=== PATIENT | female | born 1960 | race African-American/Black ===

== ENCOUNTER 2016-07-26 02:12 | Inpatient (IN) | payer BC ==
[~2016-07-26] VITALS: Ht 157.5 cm; Wt 82.3 kg
[2016-07-26] VITALS (39 sets, daily range): BP systolic 111–157; BP diastolic 81–131
[2016-07-26] MEDS: AMIODARONE IV SOLUTION 200 ML IV SCH ×2 (03:05→09:17)
[2016-07-26] MEDS ORDERED: HEParin DRIP 25000 UNIT/500ML 500 ML IV ONE (03:16)
[2016-07-26 03:25] LABS: BASOPHILS % (AUTO) 0 % (0-10); EOSINOPHILS # (AUTO) 0.1 10^3/uL (0.0-0.3); EOSINOPHILS % (AUTO) 2 % (0-10); LYMPHOCYTES # (AUTO) 3.4 X 10^3 (1.0-4.0); LYMPHOCYTES % (AUTO) 52 % (12-44); MEAN CORPUSCULAR HEMOGLOBIN 28 PG (25-34); MEAN CORPUSCULAR HGB CONC 33 G/DL (32-36); MEAN CORPUSCULAR VOLUME 84 FL (80-99); MEAN PLATELET VOLUME 9.9 FL (7.4-10.4); MONOCYTES # (AUTO) 0.4 X 10^3 (0.0-1.0); MONOCYTES % (AUTO) 6 % (0-12); NEUTROPHILS # (AUTO) 2.6 X 10^3 (1.8-7.8); NEUTROPHILS % (AUTO) 40 % (42-75); PLATELET COUNT 233 10^3/uL (130-400); RED BLOOD COUNT 5.12 10^6/uL (4.35-5.85); RED CELL DISTRIBUTION WIDTH 15.3 % (10.0-14.5); WHITE BLOOD COUNT 6.4 10^3/uL (4.3-11.0)
[2016-07-26 03:36] LABS: PROTHROMBIN TIME PATIENT 12.9 SEC (12.2-14.7)
[2016-07-26 03:52] LABS: ANION GAP 12 MMOL/L (5-14); BLOOD UREA NITROGEN 7 MG/DL (7-18); BUN/CREATININE RATIO 11; CALCIUM 8.7 MG/DL (8.5-10.1); CARBON DIOXIDE 16 MMOL/L (21-32); CHLORIDE 113 MMOL/L (98-107); CREATININE SERUM 0.64 MG/DL (0.60-1.30); GFR ESTIMATED > 60; GLUCOSE 92 MG/DL (70-105); PHOSPHORUS 3.6 MG/DL (2.3-4.7); POTASSIUM 3.5 MMOL/L (3.6-5.0); SODIUM 141 MMOL/L (135-145)
[2016-07-26 04:04] LABS: ALANINE AMINOTRANSFERASE 18 U/L (0-55); ANION GAP 13 MMOL/L (5-14); ASPARTATE AMINO TRANSFERASE 24 U/L (5-34); BILIRUBIN,TOTAL 0.6 MG/DL (0.1-1.0); BLOOD UREA NITROGEN 7 MG/DL (7-18); BUN/CREATININE RATIO 11; CALCIUM 8.7 MG/DL (8.5-10.1); CARBON DIOXIDE 15 MMOL/L (21-32); CHLORIDE 113 MMOL/L (98-107); CREATININE SERUM 0.64 MG/DL (0.60-1.30); GFR ESTIMATED > 60; GLUCOSE 94 MG/DL (70-105); POTASSIUM 3.5 MMOL/L (3.6-5.0); SODIUM 141 MMOL/L (135-145); TOTAL PROTEIN 6.9 G/DL (6.4-8.2)
[2016-07-26 04:24] LABS: THYROID STIMULATING HORMONE 0.56 UIU/ML (0.35-4.94)
[2016-07-26] MEDS ORDERED: HEParin 1000 UNIT/ML BOLUS (FULL THERAPY) IV PRN (04:45)
[2016-07-26] MEDS ORDERED: HEParin DRIP 25000 UNIT/500ML (FULL THERAPY) IV SCH (04:45)
[2016-07-26] MEDS: MAGNESIUM 1 GM/100 ML IVPB 100 ML IV SCH (05:07)
[2016-07-26] MEDS: POTASSIUM CL 10MEQ/50ML IVPB 50 ML IV SCH ×3 (05:07→08:09)
[2016-07-26] MEDS: KCL 20 MEQ TAB (K-DUR) PO SCH (05:09)
[2016-07-26] MEDS ORDERED: KCL 20 MEQ TAB (K-DUR) PO ONE (05:15)
[2016-07-26] MEDS ORDERED: NS IV 1000 ML 1,000 ML IV ONE (07:44)
[2016-07-26] MEDS ORDERED: LIDOCAINE TOPICAL 4% 50 ML BTL MM PRN (07:45)
[2016-07-26] MEDS ORDERED: meTOprolol 5 MG/5 ML (LOPRESSOR) VIAL IV NR (07:52)
--- NOTE | 2016-07-26 07:53 | Cardiology History & Physical ---
HPI-Cardiology Cardiology Consultation Date of Consultation 07/26/16 Date of Admission Indication: Vasquez peoples HPI 55 years old lady with history of hypertension, had a stress test last week and reported that it was normal. She had episode of palpitation after the stress test resolved spontaneously. Yesterday started having palpitation, went to the emergency room and noted to be in atrial fibrillation with rapid ventricular response. It appear that she had intermittent left bundle branch block. Which could be aberrant conduction. Patient had episode of wide-complex tachycardia resembling ventricular tachycardia, she was started on amiodarone drip and heparin drip. Transferred here for evaluation upon my evaluation she was feeling well. Denied any chest pain, still feeling some palpitation, denied any shortness of breath, syncope or near syncopal episodes. PMH-Cardiology Immunizations Up To Date Date of Influenza Vaccine: May 12, 2016 Seasonal Allergies Seasonal Allergies: Yes Cardiovascular Cardiac Disorders: High Cholesterol, Hypertension Reproductive System Sexually Transmitted Disease: No HIV/AIDS: No Blood Transfusions Adverse Reaction to a Blood Tr: No Other PMHx Other PMHx: hypertension Social History Patient Social History Alcohol Use: Rarely Uses Recreational Drug Use: No Smoking: Never smoker Recent Foreign Travel: No Contact w/other who traveled: No Recent Infectious Disease Expo: No Family Hx Family History: Arthritis 19 MOTHER Asthma 19 MOTHER Cataracts 19 MOTHER Colon cancer 19 MOTHER Hypertension 19 FATHER 19 MOTHER Neoplasm 19 MOTHER Thyroid disease 19 MOTHER Visual disorder 19 FATHER 19 MOTHER ROS-Cardiology Review of Systems General: No Chills, No Night Sweats, No Fatigue, No Malaise, No Appetite HEENT: No Head Aches, No Visual Changes, No Eye Pain, No Ear Pain, No Dysphasia , No Sinus Congestion, No Post Nasal Drip, No Sore Throat Pulmonary: No Dyspnea, No Cough, No Pleuritic Chest Pain Cardiovascular: : PalpitationsNo: Chest Pain, Edema, Lt Headedness, Orthopnea, Paroxysmal Noc. Dyspnea Gastrointestinal: No: Abdominal Pain, Constipation, Diarrhea, Hematochezia, Melena, Nausea, Vomiting Genitourinary: No Dysuria, No Frequency, No Incontinence, No Hematuria, No Retention Musculoskeletal: No: arm pain, back pain, foot pain, hand pain, leg pain, neck pain, shoulder pain Neurological: No: Change in speech, Confusion, Incoordination, Numbness, Seizures, Weakness Home Medications & Allergies Allergies: Coded Allergies: No Known Drug Allergies (Unverified , 07/26/16) Home Medication List Reviewed: Yes Exam-Cardiology Vital Signs Vital Signs Date Time Temp Pulse Resp B/P Pulse Ox O2 Delivery O2 Flow Rate FiO2 07/26/16 07:00 91 21 129/100 96 Nasal Cannula 2.00 07/26/16 04:00 97.6 Exam General Appearance: Alert, Oriented X3, Cooperative, No Acute Distress HEENT: Atraumatic, PERRLA Respiratory: Clear to Auscultation, Normal Air Movement Cardiovascular: Normal S1, Normal S2, No Murmurs, Other (irregular rhythm) Abdominal: Normal Bowel Sounds, Soft, No Tenderness, No Hepatosplenomegaly, No Masses Extremities: No Clubbing, No Cyanosis, No Edema, Normal Pulses, No Tenderness/ Swelling Skin: No Rashes, No Breakdown, No Significant Lesion Neuro: Normal Gait, Normal Speech, Strength at 5/5 X4 Ext, Normal Tone, Sensation Intact Psych/Mental Status: Mental Status NL, Mood NL Results Labs Labs Laboratory Tests 07/26/16 03:00: Activated Partial Thromboplast Time 59H, Alanine Aminotransferase (ALT/SGPT) 18 , Albumin 4.0, Alkaline Phosphatase 111, Anion Gap 12, Aspartate Amino Transf ( AST/SGOT) 24, B-Type Natriuretic Peptide 88.0, BUN/Creatinine Ratio 11, Basophils # (Auto) 0.0, Basophils (%) (Auto) 0, Blood Urea Nitrogen 7, Calcium Level 8.7, Carbon Dioxide Level 16L, Chloride Level 113H, Creatinine 0.64, Eosinophils # (Auto) 0.1, Eosinophils (%) (Auto) 2, Estimat Glomerular Filtration Rate > 60, Glucose Level 92, Hematocrit 43, Hemoglobin 14.2, INR Comment 1.0, Lymphocytes # (Auto) 3.4, Lymphocytes (%) (Auto) 52H, Magnesium Level 2.0, Mean Corpuscular Hemoglobin 28, Mean Corpuscular Hemoglobin Concent 33, Mean Corpuscular Volume 84, Mean Platelet Volume 9.9, Monocytes # (Auto) 0.4 , Monocytes (%) (Auto) 6, Neutrophils # (Auto) 2.6, Neutrophils (%) (Auto) 40L, Phosphorus Level 3.6, Platelet Count 233, Potassium Level 3.5L, Prothrombin Time 12.9, Red Blood Count 5.12, Red Cell Distribution Width 15.3H, Sodium Level 141, Thyroid Stimulating Hormone (TSH) 0.56, Total Bilirubin 0.6, Total Protein 6.9, White Blood Count 6.4 07/26/16 05:25: Troponin I < 0.30 A/P-Cardiology Admission Diagnosis atrial fibrillation Ventricular tachycardia Hypertension Palpitation Assessment/Plan Atrial fibrillation with variable response, started on amiodarone, planning to evaluate JONY and cardioversion if she does not convert spontaneously. Wide complex tachycardia, ventricular tachycardia versus aberrant conduction, mild hypokalemia, I will replace, continue to monitor electrolyte, maintained on amiodarone, planning to switch to oral. Palpitation, probably secondary to above Hypertension, has been on metoprolol and lisinopril as an outpatient which will be restarted. History of ascending aortic dilation dictation discomfort in June 2016. Followed by primary cupola patcher Questionable history of cardiomyopathy, planning to evaluate echocardiogram. Clinical Quality Measures DVT/VTE Risk/Contraindication: Risk Factor Score Per Nursin RFS Level Per Nursing on Admit: 1=Low/No VTE PPX RUFINO DIAZ MD Jul 26, 2016 07:53
[2016-07-26] MEDS ORDERED: HEParin DRIP 25000 UNIT/500ML 500 ML IV SCH (07:54)
--- NOTE | 2016-07-26 07:54 | Cardiac Procedure Note-CS/ASA ---
Pre-Procedure Note Pre-Op Procedure Note H&P Reviewed The H&P was reviewed, patient examined and no changes noted. Date H&P Reviewed: Jul 26, 2016 Time H&P Reviewed: 07:53 Conscious Sedation Pre-Proced Time Reviewed: 07:53 ASA Class: 3 Airway Mallampati Classification: ([place] appropriate class) I. II. III, IV Lungs Heart ASA score ASA 1: a normal healthy patient ASA 2: a patient with a mild systemic disease (mid diabetes, controlled hypertension, obesity x ASA 3: a patient with a severe systemic disease that limits activity (angina , COPD, prior Myocardial infarction) ASA 4: a patient with an incapacitating disease that is a constant threat to life (CHF, renal failure) ASA 5: a moribund patient not expected to survive 24 hrs. (ruptured aneurysm) ASA 6: a declared brain patient whose organs are being harvested. For emergent operations, add the letter E after the classification Grade 3 Sedation Plan: Analgesia, Amnesia, Plan communicated to team members, Discussed options with patient/fam, Discussed risks with patient/fam Note The patient is an appropriate candidate to undergo the planned procedure, sedation, and anesthesia. The patient immediately re-assessed prior to indication. RUFINO DIAZ MD Jul 26, 2016 07:54
[2016-07-26] MEDS ORDERED: LISI10TA2 PO (08:00)
[2016-07-26] MEDS ORDERED: HEParin 1000 UNIT/ML (10ML VIAL) FOR BOLUS IV PRN (08:00)
[2016-07-26] MEDS ORDERED: METO50TA2 PO ×2 (08:00→08:03)
[2016-07-26] MEDS ORDERED: CATHETER FLUSH 10 ML SYR IV PRN (08:00)
[2016-07-26] MEDS ORDERED: ASPI-983 PO (08:03)
[2016-07-26] MEDS ORDERED: POTASSIUM (08:03)
[2016-07-26] MEDS ORDERED: CETI10TA20 PO (08:03)
[2016-07-26 08:10] LABS: MEAN PLATELET VOLUME 11.3 FL (7.4-10.4); RED BLOOD COUNT 4.79 10^6/uL (4.35-5.85); RED CELL DISTRIBUTION WIDTH 15.4 % (10.0-14.5); WHITE BLOOD COUNT 5.9 10^3/uL (4.3-11.0)
[2016-07-26] MEDS ORDERED: POTA10TA10 PO (09:12)
[2016-07-26 10:18] LABS: INR 1.1 (0.8-1.4); PROTHROMBIN TIME PATIENT 13.6 SEC (12.2-14.7)
[2016-07-26 10:25] LABS: PARTIAL THROMBOPLASTIN TIME > 200 SEC (24-35)
[2016-07-26] MEDS ORDERED: meTOprolol 5 MG/5 ML (LOPRESSOR) VIAL IV SCH (12:00)
[2016-07-26] MEDS ORDERED: proPOfol 200 MG/20 ML (DIPRIVAN) VIAL IV ONE (12:41)
[2016-07-26] MEDS ORDERED: MIDAZOLAM 5 MG/5 ML (VERSED) VIAL ONE ×2 (12:41→16:18)
[2016-07-26] MEDS ORDERED: LIDOCAINE 2% VISCOUS 15 ML UDC ONE (12:42)
--- NOTE | 2016-07-26 14:42 | Progress Note-Standard ---
Standard Progress Note Progress Notes/Assess & Plan Progress/Assessment & Plan Anesthesia Note Called to ICU for JONY/Cardioversion. Versed 3 mg IV given in preparation for procedure. After given, pt returned to SR. 12 lead EKG to confirm. Will be available if needed. ROHAN PLUMMER DO Jul 26, 2016 14:42
[2016-07-26] MEDS ORDERED: MIDAZOLAM 5 MG/5 ML (VERSED) VIAL IVP ONE (14:45)
[2016-07-26] MEDS ORDERED: LIDOCAINE 1% INJ 20 ML (XYLOCAINE) VIAL ONE (15:08)
[2016-07-26] MEDS ORDERED: HEParin (CATH LAB) 2,000 ML IV ONE (15:08)
[2016-07-26] MEDS ORDERED: NS IV 1000 ML 1,000 ML ONE (15:08)
[2016-07-26] MEDS ORDERED: fentaNYL INJECTION 100 MCG/2 ML AMP ONE (16:18)
[2016-07-26] MEDS ORDERED: PATIENT MAY USE OWN MEDS, ALL PO SCH (16:45)
[2016-07-26] MEDS: NS IV 1000 ML 1,000 ML IV SCH ×2 (16:45→21:58)
[2016-07-26] MEDS ORDERED: ONDANSETRON 4 MG/2 ML (SDV) Z0FRAN ONE (17:03)
[2016-07-26] MEDS ORDERED: ASPIRIN E.C. 81 MG (ECOTRIN) TAB PO SCH (21:00)
[2016-07-26] MEDS ORDERED: meTOprolol TARTRATE 50 MG (LOPRESSOR) TAB PO SCH (21:00)
[2016-07-26] MEDS ORDERED: FUROSEMIDE 40 MG/4 ML INJ (LASIX) IVP NR (21:00)
[2016-07-26] MEDS: AMIODARONE 200 MG (CORDARONE) TAB PO SCH (21:04)
[2016-07-26] MEDS: KCL 10 MEQ TAB (MICRO K) PO SCH (21:05)
[2016-07-26] MEDS: APIXABAN 5 MG (ELIQUIS) TABLET PO SCH (21:05)
[2016-07-27] VITALS (11 sets, daily range): BP systolic 131–153; BP diastolic 76–99
[2016-07-27] MEDS: NS IV 1000 ML 1,000 ML IV SCH (02:45)
[2016-07-27 04:30] LABS: BASOPHILS % (AUTO) 0 % (0-10); EOSINOPHILS # (AUTO) 0.1 10^3/uL (0.0-0.3); EOSINOPHILS % (AUTO) 1 % (0-10); LYMPHOCYTES # (AUTO) 2.3 X 10^3 (1.0-4.0); LYMPHOCYTES % (AUTO) 36 % (12-44); MEAN CORPUSCULAR HEMOGLOBIN 27 PG (25-34); MEAN CORPUSCULAR HGB CONC 33 G/DL (32-36); MEAN CORPUSCULAR VOLUME 84 FL (80-99); MEAN PLATELET VOLUME 10.4 FL (7.4-10.4); MONOCYTES # (AUTO) 0.7 X 10^3 (0.0-1.0); MONOCYTES % (AUTO) 12 % (0-12); NEUTROPHILS # (AUTO) 3.2 X 10^3 (1.8-7.8); NEUTROPHILS % (AUTO) 51 % (42-75); PLATELET COUNT 226 10^3/uL (130-400); RED BLOOD COUNT 4.79 10^6/uL (4.35-5.85); RED CELL DISTRIBUTION WIDTH 15.4 % (10.0-14.5); WHITE BLOOD COUNT 6.3 10^3/uL (4.3-11.0)
[2016-07-27 04:49] LABS: ANION GAP 9 MMOL/L (5-14); BLOOD UREA NITROGEN 5 MG/DL (7-18); BUN/CREATININE RATIO 8; CALCIUM 8.3 MG/DL (8.5-10.1); CARBON DIOXIDE 22 MMOL/L (21-32); CHLORIDE 110 MMOL/L (98-107); CREATININE SERUM 0.65 MG/DL (0.60-1.30); GFR ESTIMATED > 60; GLUCOSE 100 MG/DL (70-105); MAGNESIUM 1.9 MG/DL (1.8-2.4); PHOSPHORUS 3.6 MG/DL (2.3-4.7); POTASSIUM 3.6 MMOL/L (3.6-5.0); SODIUM 141 MMOL/L (135-145)
[2016-07-27] MEDS ORDERED: KCL 20 MEQ TAB (K-DUR) PO ONE (06:00)
[2016-07-27] MEDS: POTASSIUM CL 10MEQ/50ML IVPB 50 ML IV SCH (06:00)
[2016-07-27] MEDS: MAGNESIUM 1 GM/100 ML IVPB 100 ML IV SCH (06:00)
[2016-07-27] MEDS: KCL 20 MEQ TAB (K-DUR) PO SCH (06:00)
[2016-07-27] MEDS: KCL 10 MEQ TAB (MICRO K) PO SCH ×2 (07:00→08:48)
--- NOTE | 2016-07-27 08:17 | Cardiology Discharge Summary ---
Diagnosis/Chief Complaint Date of Admission Jul 26, 2016 at 02:12 Date of Discharge July 27, 2016 Admission Diagnosis Atrial fibrillation Ventricular tachycardia Hypertension Palpitation Discharge Diagnosis Atrial fibrillation with rapid ventricular response Ventricular tachycardia Congestive heart failure, chronic compensated left ventricular size dysfunction, nonischemic cardiomyopathy, ejection fraction 20 percent Palpitation Hypertension Chief Complaint/HPI Chief Complaint/HPI 55 years old lady with history of hypertension, had a stress test last week and reported that it was normal. She had episode of palpitation after the stress test resolved spontaneously. Started having palpitation, went to the emergency room and noted to be in atrial fibrillation with rapid ventricular response. It appear that she had intermittent left bundle branch block. Which could be aberrant conduction. Patient had episode of wide-complex tachycardia resembling ventricular tachycardia, she was started on amiodarone drip and heparin drip. Transferred here from [place] for evaluation, upon my evaluation she was feeling well. Denied any chest pain, still feeling some palpitation, denied any shortness of breath, syncope or near syncopal episodes. During the hospital stay patient converted to sinus rhythm on amiodarone, echocardiogram was done which showed severe cardiomyopathy with ejection fraction 20 percent, I decided to proceed with cardiac catheterization to evaluate for ischemic cardiomyopathy which showed mild disease nonobstructive disease. Patient has nonischemic cardiomyopathy. I will continue on amiodarone for now, initiate her on life vest and arrange for follow-up with Dr. Haley Discharge Summary Hospital Course Hospital Course Atrial fibrillation with variable response, converted to sinus rhythm on amiodarone. Continue on amiodarone. [id number] score is 3, yearly risk of stroke without oral anticoagulation is 3.2 percent. I started her on Eliquis 5 mg twice daily. Wide complex tachycardia, ventricular tachycardia versus aberrant conduction, patient is seen and followed by Dr. Haley, started on amiodarone, I am planning to place a LifeVest and arrange for follow-up with Dr. Haley Congestive heart failure, severe left ventricular systolic dysfunction, nonischemic cardiomyopathy, chronic compensated, ejection fraction 20 percent, continue on beta blockers and Juan inhibitors. Continue on amiodarone and place LifeVest, planning for possible ICD implant which will be done as an outpatient. Palpitation, probably secondary to above, Reporting improvement Hypertension, continue on beta blockers and Juan inhibitors and monitor tolerance History of ascending aortic dilation dictation discomfort in June 2016. Followed by primary registered nurse practitioner Coronary artery disease, cardiac catheterization showed mild disease nonobstructive disease. Prominent aortic arch. Labs Laboratory Tests 07/26/16 03:00: Activated Partial Thromboplast Time 59H, Carbon Dioxide Level 16L, Chloride Level 113H, Lymphocytes (%) (Auto) 52H, Neutrophils (%) (Auto) 40L, Potassium Level 3.5L, Red Cell Distribution Width 15.3H 07/26/16 05:25: Red Cell Distribution Width 15.4H, Mean Platelet Volume 11.3H 07/26/16 10:02: Activated Partial Thromboplast Time > 200*H 07/27/16 03:50: Chloride Level 110H, Red Cell Distribution Width 15.4H, Blood Urea Nitrogen 5L, Calcium Level 8.3L Procedures None. Discharge Physical Examination Allergies: Coded Allergies: No Known Drug Allergies (Unverified , 07/26/16) Vitals & I&Os Vital Signs Date Time Temp Pulse Resp B/P Pulse Ox O2 Delivery O2 Flow Rate FiO2 07/27/16 07:00 57 07/27/16 06:00 7 153/94 96 Room Air 07/27/16 04:00 97.1 07/26/16 16:45 2.00 General Appearance: Alert, Oriented X3, Cooperative, No Acute Distress HEENT: Atraumatic, PERRLA Respiratory: Clear to Auscultation, Normal Air Movement Cardiovascular: Regular Rate, Normal S1, Normal S2, No Murmurs Abdominal: Normal Bowel Sounds, Soft, No Tenderness, No Hepatosplenomegaly, No Masses Extremities: No Clubbing, No Cyanosis, No Edema, Normal Pulses, No Tenderness/ Swelling Skin: No Rashes, No Breakdown, No Significant Lesion Neuro: Normal Gait, Normal Speech, Strength at 5/5 X4 Ext, Normal Tone, Sensation Intact, Cranial Nerves 3-12 NL, Reflexes 2+ Psych/Mental Status: Mental Status NL, Mood NL Discharge Home Medications Reviewed and agree with Discharge Medication list on patient's Discharge Instruction sheet Instructions to Patient/Family Please see electonic discharge instructions given to patient. Clinical Quality Measures DVT/VTE Risk/Contraindication: VTE Present on Admission: Yes Risk Factor Score Per Nursin RFS Level Per Nursing on Admit: 2=Moderate RUFINO DIAZ MD Jul 27, 2016 08:17
[2016-07-27] MEDS ORDERED: FURO-125 PO (08:20)
[2016-07-27] MEDS ORDERED: POTA10TA6 PO (08:20)
[2016-07-27] MEDS ORDERED: AMIO200T2 PO (08:20)
[2016-07-27] MEDS ORDERED: APIX5TAB PO (08:20)
--- NOTE | 2016-07-27 08:21 | Discharge Inst-Post CATH ---
Discharge Inst-CATH Post Cardiac Cath D/C Inst Follow Up/Plan Appointment with Dr. Haley in one to 2 weeks CARDIAC CATH DISCHARGE INSTRUCTIONS *Hold Metformin for 48 hours post heart cath. ACTIVITY * Go Home directly and rest. * Limit activity of the leg (or wrist if it was used) for 7 days including aerobics, swimming, jogging, bicycling, etc. * Restrict stair-climbing for 7 days if possible, if not, climb up with your non -cath leg, then bring together on the same step. * Avoid lifting, pushing, pulling or excessive movement of the affected extremity for 7 days. * Customary sexual activity may be resumed after 2 days-use caution not to use a position that strains or causes pain to the affected extremity. * No driving for 24 hours. * NO SMOKING. * Avoid straining for bowel movements for 7 days. * Gentle walking on level ground is allowed. * Returning to work will depend on the type of procedure and the results. Your doctor will discuss this with you. CALL YOUR DOCTOR FOR ANY OF THE FOLLOWING: *If bleeding from the puncture site occurs- Apply gentle pressure to site with clean cloth and call your doctor or EMS. * If a knot or lump forms under the skin, increases in size, or causes pain. * If bruising appears to be worsening or moving further down your leg instead of disappearing. * Temperature above 101 F. CARE OF YOUR GROIN INCISION; * Bruising or purple discoloration of the skin near the puncture site is common. * You may shower only, no bathtub bathing for 5 days. Be careful to avoid slipping as your leg may feel stiff. * If a closure device was used on your femoral artery, please see the attached guide regarding care of the device and your leg. * REMOVE the dressing from your groin the next day after your procedure in the shower. CARE OF YOUR WRIST INCISION; * Bruising or purple discoloration of the skin near the puncture site is common. * You may shower. * DO NOT submerge wrist. * Remove dressing in 24 hours. RUFINO DIAZ MD Jul 27, 2016 08:21
[2016-07-27] MEDS: APIXABAN 5 MG (ELIQUIS) TABLET PO SCH (08:48)
[2016-07-27] MEDS: AMIODARONE 200 MG (CORDARONE) TAB PO SCH (08:48)
[2016-07-27] MEDS ORDERED: lisINopril 10 MG (PRINIVIL) TAB PO SCH (09:00)
[2016-07-27] MEDS ORDERED: ASPIRIN E.C. 81 MG (ECOTRIN) TAB PO SCH (09:00)
[2016-07-27] MEDS ORDERED: meTOprolol TARTRATE 50 MG (LOPRESSOR) TAB PO SCH (09:00)
--- NOTE | 2016-07-27 09:12 | Diagnostic Imaging Report ---
INDICATION: Shortness of breath. FINDINGS: There is cardiomegaly. The lungs are clear. There is no pleural effusion or pneumothorax. IMPRESSION: No acute cardiopulmonary abnormality. Cardiomegaly. Dictated by: Dictated on workstation # [id number]
--- NOTE | 2016-07-28 00:02 | CARDIAC CATHETERIZATION ---
PROCEDURE PHYSICIAN: RUFINO DIAZ DATE OF PROCEDURE: 07/26/2016 CARDIAC CATHETERIZATION REPORT: REFERRING PHYSICIAN: Dr. Saadia Arechiga Ms. Tam is a 55-year-old lady who was transferred from [facility] due to atrial fibrillation and multiple episodes of sustained ventricular tachycardia. She has been having palpitations. I did a transthoracic echocardiogram, which showed severe cardiomyopathy with ejection fraction 20%, decided to proceed with coronary angiogram. PROCEDURE NOTE: After explaining the procedure to the patient, all pros and cons were explained. All questions were answered. The patient signed a consent, then she was placed on the cardiac catheterization laboratory. The right groin was prepped in a sterile fashion. Local anesthesia applied to the right groin. 6-St Helenian sheath was placed in the right femoral artery. Combination of right and left Roberto Carlos catheter were used to access the right and left coronary system. Multiple views were obtained. Pigtail catheter was advanced to the left ventricular cavity. Pressure was measured. No left ventriculogram was done. Pullback LV to aorta was done. The aortic arch angiogram was done. At the end of the procedure, sheath was removed. Mynx device deployed. Hemostasis achieved. FINDINGS: HEMODYNAMICS: LV pressure is 141/22, end-diastolic pressure of 22. Aortic pressure 148/88, mean of 106. ANATOMY: 1. Left main coronary artery is bifurcating to left anterior descending and left circumflex artery with no obstructive disease. 2. Left anterior descending artery is moderate in size with no significant obstructive disease. 3. Left circumflex artery is moderate in size with no obstructive disease. 4. Right coronary artery is moderate in size with no obstructive disease. 5. No left ventriculogram was done. Elevated left ventricular end diastolic pressure. 6. Aortic arch angiogram appeared to be done in the left anterior oblique position. The aortic arch is prominent. The left carotid artery is originating from the right innominate artery. The left subclavian artery is normal. Otherwise, no abnormality. IN CONCLUSION: 1. Mild coronary artery disease, nonobstructive disease. 2. Severe cardiomyopathy, nonischemic in nature. Elevated left ventricular end-diastolic pressure. 3. 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 DISCUSSION AND RECOMMENDATION: I will continue maximizing medical therapy. Her cardiomyopathy is nonischemic. Job ID: [id number] Dictated Date: 07/26/2016 16:52:59 Lens Inserter Date: 07/27/2016 23:53:24 / erica
--- NOTE | 2016-07-28 23:53 | ECHOCARDIOGRAPHY REPORT ---
PROCEDURE PHYSICIAN: RUFINO DIAZ DATE OF PROCEDURE: 07/26/2016 TWO DIMENSIONAL ECHOCARDIOGRAM REPORT PRIMARY PHYSICIAN: OTHER PHYSICIAN: REFERRING PHYSICIAN: Dr. Saadia Arechiga and Dr. Blaine Haley ORDERING PHYSICIAN: INDICATION FOR THE PROCEDURE: Atrial fibrillation. MEASUREMENTS DERIVED VALUES LV DIAMETER (LAX) NORMALS NORMALS Diastolic 4.4 (3.6-5.2) Eject. Fract. 20% (60%+/-6%) Systolic (2.3-3.9) Diastolic Vol. % Shortening (0.22-0.42) Systolic Vol. Aortic Root IVS THICKNESS Diastolic 1.1 (0.6-1.1) LVPW THICKNESS Diastolic 1.1 (0.6-1.1) LA DIAMETER Systolic 3.2 (2.1-3.7) FINDINGS: 1. Technical quality is good. 2. The left ventricle is dilated with diffuse left ventricular hypokinesia. Systolic function is reduced. Estimated ejection fraction 20%. 3. The left atrium is dilated. No clot or thrombus were seen within the left atrium. 4. The right atrium and right ventricle are normal in size. No clot or thrombus were seen within the right side. 5. Mitral valve is normal in morphology with mild mitral regurgitation noted by color Doppler flow. No mitral valve prolapse. No mitral valve stenosis. 6. Aortic valve is trileaflet with normal opening and closing pattern. No significant aortic stenosis or regurgitation was seen. 7. Tricuspid valve is normal in morphology with mild tricuspid regurgitation noted by color Doppler flow. Doppler across tricuspid valve estimated pulmonary artery pressure of 15+ right atrial pressure. 8. Pulmonic valve is functioning normally. 9. No pericardial effusion. IN CONCLUSION: 1. Normal left ventricular size and systolic function. Estimated ejection fraction is 60%. 2. Mild mitral and tricuspid regurgitation. 3. Estimated pulmonary artery pressure of 20 to 25 mmHg. Job ID: [id number] Dictated Date: 07/28/2016 10:30:24 Bench Examiner Date: 07/28/2016 23:48:56 / erica
== END 2016-07-27 14:20 | disposition home or self-care (01) | DRG 287 ==
LOC: INTOOBSV 02:12 → ICU 02:12 → OBSVTOIN 02:12
PROVIDERS: ADMIT Internal Medicine Cardiovascular Disease; ATTEND Internal Medicine Cardiovascular Disease
PROC: B2111ZZ Fluoroscopy of Multiple Coronary Arteries using Low Osmolar Contrast (ICD-10-PCS; principal; 2016-07-26)
PROC: B3101ZZ Fluoroscopy of Thoracic Aorta using Low Osmolar Contrast (ICD-10-PCS; 2016-07-26)
DX: I48.91 Unspecified atrial fibrillation (principal); I50.22 Chronic systolic (congestive) heart failure; I47.2 Ventricular tachycardia; I10 Essential (primary) hypertension; E78.00 Pure hypercholesterolemia, unspecified; E87.6 Hypokalemia; I25.10 Atherosclerotic heart disease of native coronary artery without angina pectoris; I42.9 Cardiomyopathy, unspecified; I08.1 Rheumatic disorders of both mitral and tricuspid valves
CPT/HCPCS: 36221; 36415; 71010; 80048; 80053; 83735; 83880; 84100; 84443; 84484; 85025; 85027; 85610; 85730; 87081; 93005; 93306; 93458

== ENCOUNTER → 2016-10-31 | Outpatient (CLI) | payer BC ==
[~2016-10-31] MED LIST: AMIO200T2 PO; APIX5TAB PO; ASPI-983 PO; CATHETER FLUSH 10 ML SYR IV PRN; CETI10TA20 PO; FURO-125 PO; HEParin (CENTRAL IV FLUSH) 500 UNIT/5 ML SYR ONE; LISI10TA2 PO; METO50TA2 PO; POTA10TA10 PO; POTA10TA6 PO; POTASSIUM
== END ==
DX: I48.0 Paroxysmal atrial fibrillation (principal); I10 Essential (primary) hypertension; E78.5 Hyperlipidemia, unspecified; Z82.49 Family history of ischemic heart disease and other diseases of the circulatory system

== ENCOUNTER 2019-06-20 21:04 | Emergency (ER) | payer MEDICAID, MEDICARE ==
[~2019-06-20] VITALS: Ht 157.5 cm; Wt 82.7 kg
[~2019-06-20 21:04] MED LIST changes: -AMIO200T2 PO; +AMIO200T4 PO; -CATHETER FLUSH 10 ML SYR IV PRN; -HEParin (CENTRAL IV FLUSH) 500 UNIT/5 ML SYR ONE; +METO50TA15 PO; -METO50TA2 PO
--- NOTE | 2019-06-20 21:32 | Diagnostic Imaging Report ---
INDICATION: Right foot injury with pain AP, oblique and lateral views of the right foot reveal forefoot swelling. There is mild widening of the 5th proximal interphalangeal joint which could be related to ligamentous injury and subluxation. No definite fracture line is identified. There is mild plantar calcaneal spurring. IMPRESSION: Subluxation possibly related to ligamentous injury at the 5th proximal interphalangeal joint. Otherwise, no acute abnormality is identified. Dictated by: Dictated on workstation # [id number]
--- NOTE | 2019-06-20 22:07 | ED Lower Extremity ---
General Chief Complaint: Lower Extremity Stated Complaint: FALL/ANKLE PAIN Nursing Triage Note: pt states she tripped over grandchilds toy injury right 5 th toe and lateral foot Nursing Sepsis Screen: No Definite Risk Source: patient, EMS History of Present Illness Date Seen by Provider: Jun 20, 2019 Time Seen by Provider: 22:06 Initial Comments 58-year-old female presenting with complaints of headache fifth toe and lateral foot pain. She had tripped on a toy of her granddaughters. She had pain of her fifth toe of the right foot as well as extending up the lateral portion of her foot. She had landed on her back and had difficulty initially getting up but was able to get up home. Then because of still having the pain in her foot and toe she had EMS bring her to the emergency department to see if there was any fract ure. She was concerned because of the amount of pain she was having. There was no bruising or swelling to her foot. She denies hitting her head or losing consciousness she has no numbness or tingling to her foot. Allergies and Home Medications Allergies Coded Allergies: No Known Drug Allergies (Unverified , 07/26/16) Home Medications Amiodarone HCl 200 Mg Tablet, 400 MG PO BID take 400 mg twice daily for 2 weeks then 400 mg daily Prescribed by: RUFINO IDAZ on 07/27/16819 Apixaban 5 Mg Tablet, 5 MG PO BID Prescribed by: RUFINO DIAZ on 07/27/16819 Cetirizine HCl 10 Mg Tablet, 10 MG PO BID, (Reported) Furosemide 20 Mg Tablet, 20 MG PO DAILY Prescribed by: RUFINO DIAZ on 07/27/16819 Lisinopril 10 Mg Tablet, 10 MG PO DAILY, (Reported) Metoprolol Tartrate 50 Mg Tablet, 50 MG PO DAILY, (Reported) Metoprolol Tartrate 50 Mg Tablet, 25 MG PO HS, (Reported) TAKES 1/2 (50MG) TABLET Potassium Chloride 10 Meq Tablet.er, 10 MEQ PO BID WITH MEALS Prescribed by: RUFINO DIAZ on 07/27/16819 Patient Home Medication List Home Medication List Reviewed: Yes Review of Systems Constitutional: No chills, No fever EENTM: no symptoms reported Respiratory: no symptoms reported Cardiovascular: no symptoms reported Gastrointestinal: no symptoms reported Genitourinary: no symptoms reported Musculoskeletal: see HPI Skin: see HPI Psychiatric/Neurological: See HPI Past Sclxrdz-Hcwtpq-Qyyjkt Hx Past Med/Social Hx: Reviewed Nursing Past Med/Soc Hx Patient Social History Alcohol Use: Denies Use Number of Drinks Today: Alcohol Beverage of Choice: Wine Recreational Drug Use: No Smoking Status: Never a Smoker Recent Foreign Travel: No Contact w/Someone Who Travel: No Recent Infectious Disease Expo: No Recent Hopitalizations: No Physical Abuse: No Sexual Abuse: No Mistreated: No Fear: No Immunizations Up To Date PED Vaccines UTD: Yes Date of Influenza Vaccine: May 12, 2016 Seasonal Allergies Seasonal Allergies: Yes Past Medical History Surgeries: Yes (wisdom teeth) Hysterectomy Respiratory: No Currently Using CPAP: No Currently Using BIPAP: No Cardiac: Yes (SVT, ) Neurological: No Sexually Transmitted Disease: No HIV/AIDS: No Genitourinary: No Gastrointestinal: No Musculoskeletal: No Endocrine: Yes ("PRE-DIABETIC") HEENT: No Cancer: No Psychosocial: No Integumentary: No Blood Disorders: No Adverse Reaction/Blood Tranf: No Family Medical History Arthritis 19 MOTHER Asthma 19 MOTHER Cataracts 19 MOTHER Colon cancer 19 MOTHER Hypertension 19 FATHER 19 MOTHER Neoplasm 19 MOTHER Thyroid disease 19 MOTHER Visual disorder 19 FATHER 19 MOTHER Physical Exam Vital Signs Vital Signs - First Documented 06/20/19 06/20/19 21:20 22:30 Temp 37.4 Pulse 82 Resp 18 B/P (MAP) 168/91 (116) Pulse Ox 97 O2 Delivery Room Air Capillary Refill : Less Than 3 Seconds Height, Weight, BMI Height: 5'2.00" Weight: 181lbs. 6.4oz. 82.263441om; 33.00 BMI Method: General Appearance: WD/WN, no apparent distress Feet: right foot pain (right 5th toe and metatarsal. no swelling or bruising), right foot other (no deformity noted and no nail injury or bruising to right lateral foot and 5th toe. ) Neurologic/Tendon: normal sensation, normal motor functions Neurologic/Psychiatric: alert, normal mood/affect, oriented x 3 Skin: normal color, warm/dry Progress/Results/Core Measures Results/Orders My Orders Orders - BEL RIDER MD Foot 3 View Right (06/20/19 21:16) Nursing Communication (Order) (06/20/19 22:22) Vital Signs/I&O 06/20/19 06/20/19 21:20 22:30 Temp 37.4 37.4 Pulse 82 82 Resp 18 18 B/P (MAP) 168/91 (116) 168/91 (116) Pulse Ox 97 O2 Delivery Room Air Room Air Blood Pressure Mean: 116 Progress Progress Note : Progress Note X-ray of the right foot was obtained and did not show any acute fracture or dislocation. Counseled patient on results and will naomi tape the pinky toe to the fourth toe. Counseled on follow-up and return precautions. Advised symptomatic care Diagnostic Imaging Diagonstic Imaging: Xray Plain Films/CT/US/NM/MRI: other (right foot) Comments NAME: FATMATA CHIN [facility] REC#: [id number] PT STATUS: REG ER : 1960 PHYSICIAN: BEL RIDER MD ADMIT DATE: 06/20/19/ER FS Signed Date of Exam:06/20/19 FOOT 3 VIEW RIGHT INDICATION: Right foot injury with pain AP, oblique and lateral views of the right foot reveal forefoot swelling. There is mild widening of the 5th proximal interphalangeal joint which could be related to ligamentous injury and subluxation. No definite fracture line is identified. There is mild plantar calcaneal spurring. IMPRESSION: Subluxation possibly related to ligamentous injury at the 5th proximal interphalangeal joint. Otherwise, no acute abnormality is identified. Dictated by: Dictated on workstation # [id number] Dict: 06/20/192127 Trans: 06/20/192200 SABI [id number] Interpreted by: TIMOTHY OLSEN MD Electronically signed by: TIMOTHY OLSEN MD 06/20/192200 Departure Impression Primary Impression: Strain of fifth toe of right foot Qualified Codes: S96.911A - Strain of unspecified muscle and tendon at ankle and foot level, right foot, initial encounter Additional Impression: Fall at home Qualified Codes: W19.XXXA - Unspecified fall, initial encounter; Y92.009 - Unspecified place in unspecified non-institutional (private) residence as the place of occurrence of the external cause Disposition: 01 HOME, SELF-CARE Condition: Stable Departure-Patient Inst. Decision time for Depature: 22:26 Referrals: ABIGAIL DOVER MD (PCP/Family) Primary Care Physician Patient Instructions: Toe Injury (DC) Add. Discharge Instructions: Naomi tape the toe to the toe next to it for the next week or so to help it heal Check with the clinic for continued pain/problems Try Ibuprofen for pain and inflammation. You may also apply ice 15 - 20 minutes every few hours as needed for pain and swelling All discharge instructions reviewed with patient and/or family. Voiced understanding. BEL RIDER MD Jun 20, 2019 22:06
--- NOTE | 2019-06-20 22:25 | NUR ---
right 5 th toe naomi taped to 4 th
[2019-06-20 22:30] VITALS: BP 168/91
--- OUTSIDE RECORDS SUMMARY | 2019-06-28 22:07 | XMS REPORT ---
Author Author Leisa BRUCE Organization [employer] Address Unknown Phone Unavailable Care Team Providers Care Ball Mill Mixer Name Role Phone IVET BRUCE CP Unavailable Allergies, Adverse Reactions, Alerts Substance Reaction Event Type Pt believes she is allergic to Clindamycin. Info Not Availab le Non Drug Allergy Problems Problem Type Condition Code Onset Dates Condition Statu s Assessment Encounter for dental examination Z01.20 Active Assessment Dental examination Z01.20 Active Problem Encounter for dental examination Z01.20 Active Medications Medication Code System Code Instructions Start Date End Date Status Dosage Klor-Con 10 [facility] [address]-42 not de fined Baby Aspirin NDC 0 not defined Metoprolol Tartrate [facility] [address]-83 not defined ibuprofen NDC 0 not defined Diphenhydramine NDC 0 not defi lucita Triamcinolone Hexacetonide [facility] [address]-98 not defined Loratadine [facility] [address]-75 not def ined Procedures Procedure Coding System Code Date INTRAORL-PERIAPICAL EA ADD FILM CPT-4 D0230 Apr 12, 2015 INTRAORL-PERIAPICAL EA ADD FILM CPT-4 D0230 Apr 12, 2015 INTRAORL-PERIAPICAL 1 FILM 76920 CPT-4 D0220 Apr 12, 2015 BITEWINGS - FOUR FILMS CPT-4 D0274 Apr 12, 2 015 INTRAORL-PERIAPICAL EA ADD FILM CPT-4 D0230 Apr 12, 2015 Results No Known Results Summary Purpose [employer] Submission
--- OUTSIDE RECORDS SUMMARY | 2019-06-28 22:07 | XMS REPORT ---
Author Leisa Ramachandran Organization [employer] Address Unknown Phone Unavailable Care Team Providers Care Aws Solution Architect Name Role Phone ALEXANDRA OLIVIA Unavailable Allergies No Known Allergies Problems Problem Type Condition Code Onset Dates Condition Statu s Assessment Encounter for dental examination Z01.20 Active Problem Encounter for dental examination Z01.20 Active Medications Medication Code System Code Instructions Start Date End Date Status Dosage Klor-Con 10 [facility] [address]-39 not de fined Baby Aspirin NDC 0 not defined Diphenhydramine NDC 0 not defi lucita ibuprofen NDC 0 not defined Metoprolol Tartrate [facility] [address]-40 not defined Triamcinolone Hexacetonide [facility] [address]-18 not defined Loratadine [facility] [address]-59 not def ined Procedures Procedure Coding System Code Date PROPHYLAXIS - ADULT CPT-4 D1110 Mar 10, 2015 TOPICAL FLUORIDE VARNISH CPT-4 D1206 Mar 10, 2015 PANORAMIC FILM SEE ALSO CODE 73709 CPT-4 D0330 Mar 10, 2015 Vital Signs Date/Time: Mar 10, 2015 Blood Pressure Diastolic 89 mmHg Blood Pressure Systolic 128 mmHg Results No Known Results Summary Purpose [employer] Submission
--- OUTSIDE RECORDS SUMMARY | 2019-06-28 22:07 | XMS REPORT ---
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 Info Not Availab le Non Drug Allergy Problems Problem Type Condition Code Onset Dates Condition Statu s Assessment Encounter for dental examination Z01.20 Active Problem Encounter for dental examination Z01.20 Active Medications No Known Medications Procedures Procedure Coding System Code Date Billing Notes on claim CPT-4 EC109 Apr 20, 015 Dental no charge CPT-4 D0099 Apr 20, 2015 Vital Signs Date/Time: Apr 20, 2015 Blood Pressure Diastolic 105 mmHg Blood Pressure Systolic 150 mmHg Results No Known Results Summary Purpose [employer] Submission
--- OUTSIDE RECORDS SUMMARY | 2019-06-28 22:08 | XMS REPORT | Continuity of Care Document ---
Author Organization Unknown Address Unknown Phone Unavailable Allergies Active Description Code Type Severity Reaction Onset Reported/Identified Relationship to Patient Clinical Status Yes No Known Drug Allergies [id number] Drug Allergy Unknown N/A 07/26/2016 Medications There is no data. Problems Date Dx Coded Attending Type Code Diagnosis Diagnosed By 07/27/2016 RUFINO DIAZ MD Ot E78. 00 PURE HYPERCHOLESTEROLEMIA, UNSPECIFIED 07/27/2016 RUFINO DIAZ MD Ot E87. 6 HYPOKALEMIA 07/27/2016 RUFINO DIAZ MD Ot I08. 1 RHEUMATIC DISORDERS OF BOTH MITRAL AND T 07/27/2016 RUFINO DIAZ MD Ot I10 ESSENTIAL (PRIMARY) HYPERTENSION 07/27/2016 RUFINO DIAZ MD Ot I25. 10 ATHSCL HEART DISEASE OF [place] CORONARY 07/27/2016 RUFINO DIAZ MD Ot I42. 9 CARDIOMYOPATHY, UNSPECIFIED 07/27/2016 RUFINO DIAZ MD Ot I47. 2 VENTRICULAR TACHYCARDIA 07/27/2016 RUFINO DIAZ MD Ot I48. 91 UNSPECIFIED ATRIAL FIBRILLATION 07/27/2016 RUFINO DIAZ MD Ot I50. 22 CHRONIC SYSTOLIC (CONGESTIVE) HEART FAIL 11/01/2016 RUFINO DIAZ MD Ot E78. 5 HYPERLIPIDEMIA, UNSPECIFIED 11/01/2016 RUFINO DIAZ MD Ot I10 ESSENTIAL (PRIMARY) HYPERTENSION 11/01/2016 RUFINO DIAZ MD Ot I48. 0 PAROXYSMAL ATRIAL FIBRILLATION 11/01/2016 RUFINO DIAZ MD Ot Z82. 49 FAMILY HX OF ISCHEM HEART DIS AND OTH DI 2016 RUFINO DIAZ MD Ot E78. 5 HYPERLIPIDEMIA, UNSPECIFIED 2016 RUFINO DIAZ MD Ot I10 ESSENTIAL (PRIMARY) HYPERTENSION 2016 RUFINO DIAZ MD Ot I48. 0 PAROXYSMAL ATRIAL FIBRILLATION 2016 RUFINO DIAZ MD Ot Z82. 49 FAMILY HX OF ISCHEM HEART DIS AND OTH DI 11/13/2016 RUFINO DIAZ MD Ot E78. 5 HYPERLIPIDEMIA, UNSPECIFIED 11/13/2016 JOE SALAZAR, RUFINO J Ot I10 ESSENTIAL (PRIMARY) HYPERTENSION 11/13/2016 JOE SALAZAR, RUFINO J Ot I48. 0 PAROXYSMAL ATRIAL FIBRILLATION 11/13/2016 JOE SALAZAR, RUFINO J Ot Z82. 49 FAMILY HX OF ISCHEM HEART DIS AND OTH DI 10/31/2017 RUFINO DIAZ MD J Ot E78. 5 HYPERLIPIDEMIA, UNSPECIFIED 10/31/2017 JOE SALAZAR, EILEENHAR J Ot I10 ESSENTIAL (PRIMARY) HYPERTENSION 10/31/2017 JOE SALAZAR, RUFINO J Ot I48. 0 PAROXYSMAL ATRIAL FIBRILLATION 10/31/2017 JOE SALAZAR, RUFINO J Ot Z82. 49 FAMILY HX OF ISCHEM HEART DIS AND OTH DI 11/13/2017 RUFINO DIAZ MD Ot E78. 5 HYPERLIPIDEMIA, UNSPECIFIED 11/13/2017 JOE SALAZAR, RUFINO J Ot I10 ESSENTIAL (PRIMARY) HYPERTENSION 11/13/2017 JOE SALAZAR, RUFINO J Ot I48. 0 PAROXYSMAL ATRIAL FIBRILLATION 11/13/2017 JOE SALAZAR, RUFINO J Ot Z82. 49 FAMILY HX OF ISCHEM HEART DIS AND OTH DI 11/27/2017 RUFINO DIAZ MD Ot E78. 5 HYPERLIPIDEMIA, UNSPECIFIED 11/27/2017 JOE SALAZAR, EILEENHAR J Ot I10 ESSENTIAL (PRIMARY) HYPERTENSION 11/27/2017 JOE SALAZAR, RUFINO J Ot I48. 0 PAROXYSMAL ATRIAL FIBRILLATION 11/27/2017 JOE SALAZAR, RUFINO J Ot Z82. 49 FAMILY HX OF ISCHEM HEART DIS AND OTH DI 11/25/2018 RUFINO DIAZ MD J Ot E78. 5 HYPERLIPIDEMIA, UNSPECIFIED 11/25/2018 JOE SALAZAR, BASHAR J Ot I10 ESSENTIAL (PRIMARY) HYPERTENSION 11/25/2018 JOE SALAZAR, RUFINO J Ot I48. 0 PAROXYSMAL ATRIAL FIBRILLATION 11/25/2018 JOE SALAZAR, RUFINO J Ot Z82. 49 FAMILY HX OF ISCHEM HEART DIS AND OTH DI 06/20/2019 RUFINO DIAZ MD Ot E78. 5 HYPERLIPIDEMIA, UNSPECIFIED 06/20/2019 JOE SALAZAR, EILEENHAR J Ot I10 ESSENTIAL (PRIMARY) HYPERTENSION 06/20/2019 RUFINO DIAZ MD Ot I48. 0 PAROXYSMAL ATRIAL FIBRILLATION 06/20/2019 RUFINO DIAZ MD Ot Z82. 49 FAMILY HX OF ISCHEM HEART DIS AND OTH DI Procedures Code Description Performed By Per formed On [id number] FL UOROSCOPY OF MULT COR ART USING L OSM 07/26/2016 [id number] FL UOROSCOPY OF THORACIC AORTA USING LOW 07/26/2016 Results Test Result Range Methicillin resistant Staphylococcus aur eus (MRSA) screening culture - 07/26/16 02:15 MRSA SCREEN RESULT MRSA ISOLATED NRG Complete blood count (CBC) with automate d white blood cell (WBC) differential - 07/26/16 03:00 Blood leukocytes automated count (number/volume) 6.4 10*3/uL 4.3-11.0 Blood erythrocytes automated count (number/volume) 5.12 10*6/uL 4.35-5.85 Venous blood hemoglobin measurement (mass/volume) 14.2 g/dL 11.5-16.0 Blood hematocrit (volume fraction) 43 % 35-52 Automated erythrocyte mean corpuscular volume 84 [ foz_us] 80-99 Automated erythrocyte mean corpuscular h emoglobin (mass per erythrocyte) 28 pg 25-34 Automated erythrocyte mean corpuscular h emoglobin concentration measurement (mass/volume) 33 g/dL 32-36 Automated erythrocyte distribution width ratio 15. 3 % 10.0- 14.5 Automated blood platelet count (count/volume) 233 10*3/uL 130-400 Automated blood platelet mean volume measurement 9.9 [foz_us] 7.4-10.4 Automated blood neutrophils/100 leukocytes 40 % 42-75 Automated blood lymphocytes/100 leukocytes 52 % 12-44 Blood monocytes/100 leukocytes 6 % 0-12 Automated blood eosinophils/100 leukocytes 2 % 0-10 Automated blood basophils/100 leukocytes 0 % 0-10 Blood neutrophils automated count (number/volume) 2.6 10*3 1.8-7.8 Blood lymphocytes automated count (number/volume) 3.4 10*3 1.0-4.0 Blood monocytes automated count (number/volume) 0. 4 10*3 0.0-1.0 Automated eosinophil count 0.1 10*3/uL 0 .0-0.3 Automated blood basophil count (count/volume) 0.0 10*3/uL 0.0-0.1 PT panel in platelet poor plasma by coag ulation assay - 07/26/16 03:00 Prothrombin time (PT) in platelet poor plasma by coagu lation assay 12.9 s 12.2-14.7 INR in platelet poor plasma or blood by coagulation as say 1.0 0.8-1.4 Activated partial thromboplastin time (a PTT) in platelet poor plasma bycoagulation assay - 07/26/16 03:00 Activated partial thromboplastin time (a PTT) in platelet poor plasma bycoagulation assay 59 s 24-35 Serum or plasma lithium measurement (mol es/volume) - 07/26/16 03:00 BNP level 88.0 pg/mL <100.0 Whole blood basic metabolic panel - 07/10 11/25 03:00 Serum or plasma sodium measurement (moles/volume) 141 mmol/L 135-145 Serum or plasma potassium measurement (moles/volume) 3.5 mmol/L 3.6-5.0 Serum or plasma chloride measurement (moles/volume) 113 mmol/L 98-107 Carbon dioxide 16 mmol/L 21-32 Serum or plasma anion gap determination (moles/volume) 12 mmol/L 5-14 Serum or plasma urea nitrogen measurement (mass/volume ) 7 mg/dL 7-18 Serum or plasma creatinine measurement (mass/volume) 0.64 mg/dL 0.60-1.30 Serum or plasma urea nitrogen/creatinine mass ratio 11 NRG Serum or plasma creatinine measurement w ith calculation of estimated glomerular filtration rate > NRG Serum or plasma glucose measurement (mass/volume) 92 mg/dL 70-105 Serum or plasma calcium measurement (mass/volume) 8.7 mg/dL 8.5-10.1 Serum or plasma phosphate measurement (m ass/volume) - 07/26/16 03:00 Serum or plasma phosphate measurement (mass/volume) 3.6 mg/dL 2.3-4.7 Magnesium - 07/26/16 03:00 Magnesium 2.0 mg/dL 1.8-2.4 Comprehensive metabolic panel - 07/26/16 03:00 Serum or plasma sodium measurement (moles/volume) 141 mmol/L 135-145 Serum or plasma potassium measurement (moles/volume) 3.5 mmol/L 3.6-5.0 Serum or plasma chloride measurement (moles/volume) 113 mmol/L 98-107 Carbon dioxide 15 mmol/L 21-32 Serum or plasma anion gap determination (moles/volume) 13 mmol/L 5-14 Serum or plasma urea nitrogen measurement (mass/volume ) 7 mg/dL 7-18 Serum or plasma creatinine measurement (mass/volume) 0.64 mg/dL 0.60-1.30 Serum or plasma urea nitrogen/creatinine mass ratio 11 NRG Serum or plasma creatinine measurement w ith calculation of estimated glomerular filtration rate > NRG Serum or plasma glucose measurement (mass/volume) 94 mg/dL 70-105 Serum or plasma calcium measurement (mass/volume) 8.7 mg/dL 8.5-10.1 Serum or plasma total bilirubin measurement (mass/volu me) 0.6 mg/dL 0.1-1.0 Serum or plasma alkaline phosphatase moriah surement (enzymatic activity/volume) 111 U/L 40-136 Serum or plasma aspartate aminotransfera se measurement (enzymatic activity/volume) 24 U/L 5-34 Serum or plasma alanine aminotransferase measurement (enzymatic activity/volume) 18 U/L 0-55 Serum or plasma protein measurement (mass/volume) 6.9 g/dL 6.4-8.2 Serum or plasma albumin measurement (mass/volume) 4.0 g/dL 3.2-4.5 THYROID STIMULATING HORMONE - 07/26/16 0 3:00 THYROID STIMULATING HORMONE 0.56 u[iU]/mL 0.35-4.94 Serum or plasma troponin i.cardiac measu rement (mass/volume) - 07/26/16 05:25 Serum or plasma troponin i.cardiac measurement (mass/v olume) < ng/mL <0.30 Automated blood complete blood count (he mogram) panel - 07/26/16 05:25 Blood leukocytes automated count (number/volume) 5.9 10*3/uL 4.3-11.0 Blood erythrocytes automated count (number/volume) 4.79 10*6/uL 4.35-5.85 Venous blood hemoglobin measurement (mass/volume) 13.3 g/dL 11.5-16.0 Blood hematocrit (volume fraction) 40 % 35-52 Automated erythrocyte mean corpuscular volume 84 [ foz_us] 80-99 Automated erythrocyte mean corpuscular h emoglobin (mass per erythrocyte) 28 pg 25-34 Automated erythrocyte mean corpuscular h emoglobin concentration measurement (mass/volume) 33 g/dL 32-36 Automated erythrocyte distribution width ratio 15. 4 % 10.0- 14.5 Automated blood platelet count (count/volume) 239 10*3/uL 130-400 Automated blood platelet mean volume measurement 11.3 [foz_us] 7.4-10.4 PT panel in platelet poor plasma by coag ulation assay - 07/26/16 10:02 Prothrombin time (PT) in platelet poor plasma by coagu lation assay 13.6 s 12.2-14.7 INR in platelet poor plasma or blood by coagulation as say 1.1 0.8-1.4 Activated partial thromboplastin time (a PTT) in platelet poor plasma bycoagulation assay - 07/26/16 10:02 Activated partial thromboplastin time (a PTT) in platelet poor plasma bycoagulation assay > s 24-35 Complete blood count (CBC) with automate d white blood cell (WBC) differential - 07/27/16 03:50 Blood leukocytes automated count (number/volume) 6.3 10*3/uL 4.3-11.0 Blood erythrocytes automated count (number/volume) 4.79 10*6/uL 4.35-5.85 Venous blood hemoglobin measurement (mass/volume) 13.1 g/dL 11.5-16.0 Blood hematocrit (volume fraction) 40 % 35-52 Automated erythrocyte mean corpuscular volume 84 [ foz_us] 80-99 Automated erythrocyte mean corpuscular h emoglobin (mass per erythrocyte) 27 pg 25-34 Automated erythrocyte mean corpuscular h emoglobin concentration measurement (mass/volume) 33 g/dL 32-36 Automated erythrocyte distribution width ratio 15. 4 % 10.0- 14.5 Automated blood platelet count (count/volume) 226 10*3/uL 130-400 Automated blood platelet mean volume measurement 10.4 [foz_us] 7.4-10.4 Automated blood neutrophils/100 leukocytes 51 % 42-75 Automated blood lymphocytes/100 leukocytes 36 % 12-44 Blood monocytes/100 leukocytes 12 % 0-12 Automated blood eosinophils/100 leukocytes 1 % 0-10 Automated blood basophils/100 leukocytes 0 % 0-10 Blood neutrophils automated count (number/volume) 3.2 10*3 1.8-7.8 Blood lymphocytes automated count (number/volume) 2.3 10*3 1.0-4.0 Blood monocytes automated count (number/volume) 0. 7 10*3 0.0-1.0 Automated eosinophil count 0.1 10*3/uL 0 .0-0.3 Automated blood basophil count (count/volume) 0.0 10*3/uL 0.0-0.1 Whole blood basic metabolic panel - 07/10 12/26 03:50 Serum or plasma sodium measurement (moles/volume) 141 mmol/L 135-145 Serum or plasma potassium measurement (moles/volume) 3.6 mmol/L 3.6-5.0 Serum or plasma chloride measurement (moles/volume) 110 mmol/L 98-107 Carbon dioxide 22 mmol/L 21-32 Serum or plasma anion gap determination (moles/volume) 9 mmol/L 5-14 Serum or plasma urea nitrogen measurement (mass/volume ) 5 mg/dL 7-18 Serum or plasma creatinine measurement (mass/volume) 0.65 mg/dL 0.60-1.30 Serum or plasma urea nitrogen/creatinine mass ratio 8 NRG Serum or plasma creatinine measurement w ith calculation of estimated glomerular filtration rate > NRG Serum or plasma glucose measurement (mass/volume) 100 mg/dL 70-105 Serum or plasma calcium measurement (mass/volume) 8.3 mg/dL 8.5-10.1 Serum or plasma phosphate measurement (m ass/volume) - 07/27/16 03:50 Serum or plasma phosphate measurement (mass/volume) 3.6 mg/dL 2.3-4.7 Magnesium - 07/27/16 03:50 Magnesium 1.9 mg/dL 1.8-2.4 Encounters ACCT No. Visit Date/Time Discharge Status Pt. Type Provider Facility Loc./Unit Complaint [id number] 12/14/2018 17:10:00 12/14/2018 23:59:5 9 [facility] [id number] 06/20/2019 21:08:00 020 22:30:00 DIS Emergency TERESO SALAZAR, BEL Nina [facility] ER FS FALL/ANKLE PAIN [id number] 11/26/2018 10:00:00 019 23:59:59 CLS Preadmit KAILEY JUAREZ [facility] CARD AF [id number] 04/23/2018 12:00:00 018 23:59:59 CLS Preadmit RUFINO DIAZ MD [facility] CARD AF,BRADYCARDIA,CAD,CHF [id number] 11/14/2017 09:00:00 018 23:59:59 CLS Preadmit RUFINO DIAZ MD [facility] AF,CAD,CHF [id number] 10/31/2016 13:35:00 017 23:59:59 CLS Outpatient RUFINO DIAZ MD [facility] CARD AF I48.0 [id number] 07/26/2016 02:12:00 017 14:20:00 DIS Inpatient RUFINO DIAZ MD [facility] ICU CHS,A-FIB
== END 2019-06-20 22:30 | disposition home or self-care (01) ==
LOC: EDUNIT# 21:04 → ER FS 21:08
DX: S96.911A Strain of unspecified muscle and tendon at ankle and foot level, right foot, initial encounter (principal); Z79.01 Long term (current) use of anticoagulants; Z80.0 Family history of malignant neoplasm of digestive organs; Z82.49 Family history of ischemic heart disease and other diseases of the circulatory system; W01.0XXA Fall on same level from slipping, tripping and stumbling without subsequent striking against object, initial encounter; Y92.009 Unspecified place in unspecified non-institutional (private) residence as the place of occurrence of the external cause
CPT/HCPCS: 73630

== ENCOUNTER 2019-11-02 19:37 | Emergency (ER) | payer MEDICARE ==
[~2019-11-02] VITALS: Ht 157.4 cm; Wt 90.9 kg
[~2019-11-02 19:37] MED LIST changes: -CETI10TA20 PO; +CETI10TA21 PO
[2019-11-02 19:40] VITALS: BP 172/89
[2019-11-02] MEDS ORDERED: OXYMETAZOLINE (AFRIN) 0.05% NA 30 ML BTL ONE (19:46)
--- NOTE | 2019-11-02 19:52 | ED General ---
General Stated Complaint: NOSE BLEED Source of Information: Patient, Old Records, RN/MD, RN Notes Reviewed History of Present Illness Date Seen by Provider: Nov 02, 2019 Time Seen by Provider: 19:40 Initial Comments This patient is a 58-year-old female presents to the emergency department with complaint of nosebleed. Patient does take colic was no has history of high blood pressure. Patient states it started bleeding about 1520 minutes before arrival to the hospital. On exam patient's bleeding appears to be posterior unable to for brought direct pressure. Unable to see exactly the location to cauterize. Placed nasal rocket in place seems to have improved the symptoms. We'll continue to monitor. Timing/Duration: 1/2 Hour Severity: Moderate Associated Systoms: Denies Symptoms; No Chest Pain, No Cough, No Diaphoresis, No Fever/Chills, No Headaches, No Loss of Appetite, No Malaise, No Nausea/Vomiting, No Rash, No Seizure, No Shortness of Air, No Syncope, No Weakness, No Other Allergies and Home Medications Allergies Coded Allergies: No Known Drug Allergies (Unverified , 07/26/16) Home Medications Amiodarone HCl 200 Mg Tablet, 400 MG PO BID take 400 mg twice daily for 2 weeks then 400 mg daily Prescribed by: RUFINO DIAZ on 07/27/16819 Apixaban 5 Mg Tablet, 5 MG PO BID Prescribed by: RUFINO DIAZ on 07/27/16819 Cetirizine HCl 10 Mg Tablet, 10 MG PO BID, (Reported) Furosemide 20 Mg Tablet, 20 MG PO DAILY Prescribed by: RUFINO DIAZ on 07/27/16819 Lisinopril 10 Mg Tablet, 10 MG PO DAILY, (Reported) Metoprolol Tartrate 50 Mg Tablet, 50 MG PO DAILY, (Reported) Metoprolol Tartrate 50 Mg Tablet, 25 MG PO HS, (Reported) TAKES 1/2 (50MG) TABLET Potassium Chloride 10 Meq Tablet.er, 10 MEQ PO BID WITH MEALS Prescribed by: RUFINO DIAZ on 07/27/16819 Patient Home Medication List Home Medication List Reviewed: Yes Review of Systems Review of Systems Constitutional: No no symptoms reported; see HPI; No chills, No diaphoresis, No dizziness, No fever, No malaise, No weakness, No weight gain, No weight loss, No other EENTM: epistaxis; No see HPI, No no symptoms reported, No ear discharge, No hearing loss, No ear pain, No blurred vision, No double vision, No eye pain, No tearing, No vision loss, No dental problems, No hoarseness, No mouth pain, No mouth swelling, No nose congestion, No nose pain, No throat pain, No throat swelling, No other Respiratory: No no symptoms reported, No see HPI, No cough, No dyspnea on exertion, No hemoptysis, No orthopnea, No phlegm, No short of breath, No stridor, No wheezing, No other Cardiovascular: No no symptoms reported, No see HPI, No chest pain, No edema, No Hx of Intervention, No palpitations, No syncope, No vascular heart diseas, No other Gastrointestinal: No RUQ, No LUQ, No RLQ, No LLQ, No no symptoms reported, No see HPI, No abdominal pain, No constipation, No diarrhea, No dysphagia, No hematemesis, No heartburn, No jaundice, No loss of appetite, No melena, No nausea, No vomiting, No other Genitourinary: No no symptoms reported, No see HPI, No decreased output, No discharge, No dysuria, No frequency, No hematuria, No hesitancy, No incontinence, No nocturia, No pain, No other Musculoskeletal: No no symptoms reported, No see HPI, No back pain, No gout, No joint pain, No joint swelling, No muscle pain, No muscle stiffness, No muscle cramps, No muscle twitching, No muscle weakness, No neck pain, No other Skin: No no symptoms reported, No see HPI, No change in color, No change in hair/nails, No dryness, No hx of skin cancer, No lesions, No lumps, No pruritus, No rash, No other All Other Systems Reviewed Negative Unless Noted: Yes Past Rudixiw-Awcqqn-Dregbi Hx Patient Social History Alcohol Beverage of Choice: Wine Recent Foreign Travel: No Contact w/Someone Who Travel: No Recent Hopitalizations: No Immunizations Up To Date PED Vaccines UTD: Yes Date of Influenza Vaccine: May 12, 2016 Seasonal Allergies Seasonal Allergies: Yes Past Medical History Surgeries: Yes (wisdom teeth) Hysterectomy Respiratory: No Currently Using CPAP: No Currently Using BIPAP: No Cardiac: Yes (SVT, ) Neurological: No Sexually Transmitted Disease: No HIV/AIDS: No Genitourinary: No Gastrointestinal: No Musculoskeletal: No Endocrine: Yes ("PRE-DIABETIC") HEENT: No Cancer: No Psychosocial: No Integumentary: No Blood Disorders: No Adverse Reaction/Blood Tranf: No Family Medical History Arthritis 19 MOTHER Asthma 19 MOTHER Cataracts 19 MOTHER Colon cancer 19 MOTHER Hypertension 19 FATHER 19 MOTHER Neoplasm 19 MOTHER Thyroid disease 19 MOTHER Visual disorder 19 FATHER 19 MOTHER Physical Exam Vital Signs Vital Signs - First Documented 11/02/19 19:40 Temp 36.0 Pulse 52 Resp 18 B/P (MAP) 172/89 (116) Pulse Ox 100 O2 Delivery Room Air Capillary Refill : Height, Weight, BMI Height: 5'2.00" Weight: 181lbs. 6.4oz. [id number]; 33.00 BMI Method: General Appearance: No Apparent Distress, WD/WN HEENT: Other (patient appears to be bleeding posterior right near. Unable to visualize location to cautery. Have placed nasal rocket in place.) Respiratory: Chest Non Tender, Lungs Clear, Normal Breath Sounds, No Accessory Muscle Use, No Respiratory Distress Cardiovascular: Regular Rate, Rhythm, No Edema, No Gallop, No JVD, No Murmur, Normal Peripheral Pulses Neurologic/Psychiatric: Alert, Oriented x3, No Motor/Sensory Deficits, Normal Mood/Affect Procedures/Interventions Nasal : Nasal Location: Right Clots Cleared from Nasal: Patient Blowing Nasal Drops Instilled: Afrin Nasal Procedures: Rapid Rhino Progress/Results/Core Measures Suspected Sepsis SIRS Temperature: Pulse: Respiratory Rate: Blood Pressure / Mean: Results/Orders My Orders Orders - SUSANNA CRUZ MD Oxymetazoline 0.05% Nasal [place] (Afrin 0. (11/02/19 19:46) Medications Given in ED Current Medications Medications Dose Ordered Sig/Volodymyr Route Start Time Stop Time Status Last Admin Dose Admin Oxymetazoline HCl 30 ml STK-MED ONCE .ROUTE 11/02/19 19:46 11/02/19 19:49 DC 11/02/19 19:50 30 ML Vital Signs/I&O 11/02/19 19:40 Temp 36.0 Pulse 52 Resp 18 B/P (MAP) 172/89 (116) Pulse Ox 100 O2 Delivery Room Air Capillary Refill : Progress Note : Time: 20:19 Progress Note Rhino Rocket in place. 5.5 cm. Appears to control the bleeding. I discussed at length with patient about her nosebleed and concern for posterior location. Patient will be preferred to ENT Dr. Shirley to be seen tomorrow the clinic for possible removal of the Rhino Rocket. Patient states understanding Departure Impression Primary Impression: Epistaxis Disposition: HOME, SELF-CARE Condition: Stable Departure-Patient Inst. Decision time for Depature: 20:21 Referrals: ARCHIE SHIRLEY MD, KATRINA M MD (PCP/Family) Primary Care Physician Patient Instructions: Nosebleeds (DC), [facility]. Add. Discharge Instructions: Call Dr. Shirley's office in the morning for to be seen to have right rapid Rhino rocket removed. And further evaluation of nosebleed. SUSANNA CRUZ MD Nov 02, 2019 19:52
== END 2019-11-02 20:25 | disposition home or self-care (01) ==
LOC: EDUNIT# 19:37 → ER FS 19:38
DX: R04.0 Epistaxis (principal); Z79.01 Long term (current) use of anticoagulants; Z82.49 Family history of ischemic heart disease and other diseases of the circulatory system
CPT/HCPCS: 30905

== ENCOUNTER 2019-11-04 23:29 | Emergency (ER) | payer MEDICARE ==
[~2019-11-04] VITALS: Ht 157 cm; Wt 95.0 kg
[2019-11-04] MEDS ORDERED: NS IV 500 ML 500 ML IV ONE (23:42)
[2019-11-04] MEDS ORDERED: cefTRIAXone FOR IV USE 1,000 MG in WATER (STERILE) FOR INJECTION 10 ML IV ONE (23:45)
--- NOTE | 2019-11-04 23:50 | ED EENT ---
History of Present Illness General Chief Complaint: General Problems/Pain Stated Complaint: FEVER 99.7,RT EYE SWOLLEN, Nursing Triage Note: c/o R eye swelling. reports was in [facility] ER with epitaxis a few days prior Source: patient Exam Limitations: no limitations History of Present Illness Date Seen by Provider: Nov 04, 2019 Time Seen by Provider: 23:35 Initial Comments Patient presents to ER by private conveyance from home with chief complaint that she had epistaxis with history of Eliquis for atrial fibrillation yesterday and went to the ER at [place] and had a Rhino Rocket placed. She called follow-up with Dr. Shirley today and he started her on antibiotics and got her an anthony ointment in a few days. She took her first dose of Augmentin and then felt warm to the touch so she checked her temperature and it was 99.7 in her right ear and she noticed some swelling and puffiness around her right eye and right cheek. The Rhino Rocket is in her right nostril. She's not having any bleeding now no chest pain shortness of breath nausea vomiting or diarrhea. She had some nausea earlier but took some ondansetron which took care of it. Allergies and Home Medications Allergies Coded Allergies: No Known Drug Allergies (Unverified , 07/26/16) Home Medications Amiodarone HCl 200 Mg Tablet, 400 MG PO BID take 400 mg twice daily for 2 weeks then 400 mg daily Prescribed by: RUFINO DIAZ on 07/27/16819 Apixaban 5 Mg Tablet, 5 MG PO BID Prescribed by: RUFINO DIAZ on 07/27/16819 Cetirizine HCl 10 Mg Tablet, 10 MG PO BID, (Reported) Furosemide 20 Mg Tablet, 20 MG PO DAILY Prescribed by: RUFINO DIAZ on 07/27/16819 Lisinopril 10 Mg Tablet, 10 MG PO DAILY, (Reported) Metoprolol Tartrate 50 Mg Tablet, 50 MG PO DAILY, (Reported) Metoprolol Tartrate 50 Mg Tablet, 25 MG PO HS, (Reported) TAKES 1/2 (50MG) TABLET Potassium Chloride 10 Meq Tablet.er, 10 MEQ PO BID WITH MEALS Prescribed by: RUFINO DIAZ on 07/27/16819 Patient Home Medication List Home Medication List Reviewed: Yes Review of Systems Review of Systems Constitutional: No chills, No diaphoresis Eyes: Denies Blindness, Denies Drainage Ears: Denies Dizziness, Denies Pain Nose: see HPI, clots, congestion, epistaxis Mouth: denies clots, denies loose teeth Throat: denies pain, denies swelling Respiratory: No cough, No short of breath Cardiovascular: No edema, No syncope Gastrointestinal: No abdominal pain, No constipation, No diarrhea All Other Systems Reviewed Negative Unless Noted: Yes Past Osraadx-Hxxivn-Vxctbz Hx Patient Social History Alcohol Use: Denies Use Number of Drinks Today: Alcohol Beverage of Choice: Wine Recreational Drug Use: No Recent Foreign Travel: No Contact w/Someone Who Travel: No Recent Infectious Disease Expo: No Recent Hopitalizations: No Immunizations Up To Date PED Vaccines UTD: Yes Date of Influenza Vaccine: May 12, 2016 Seasonal Allergies Seasonal Allergies: Yes Past Medical History Surgeries: Yes (wisdom teeth) Section, Hysterectomy Respiratory: No Currently Using CPAP: No Currently Using BIPAP: No Cardiac: Yes (SVT, ) Atrial Fibrillation Neurological: No Sexually Transmitted Disease: No HIV/AIDS: No Genitourinary: No Gastrointestinal: No Musculoskeletal: No Endocrine: Yes ("PRE-DIABETIC") HEENT: No Cancer: No Psychosocial: No Integumentary: No Blood Disorders: No Adverse Reaction/Blood Tranf: No Family Medical History Arthritis 19 MOTHER Asthma 19 MOTHER Cataracts 19 MOTHER Colon cancer 19 MOTHER Hypertension 19 FATHER 19 MOTHER Neoplasm 19 MOTHER Thyroid disease 19 MOTHER Visual disorder 19 FATHER 19 MOTHER Physical Exam Vital Signs Vital Signs - First Documented 11/04/19 23:38 Temp 36.8 Pulse 58 Resp 18 B/P (MAP) 145/96 (112) Pulse Ox 98 Height, Weight, BMI Height: 5'2.00" Weight: 181lbs. 6.4oz. 82.738749vx; 38.00 BMI Method: General Appearance: WD/WN, no apparent distress Eyes: bilateral eye normal inspection, bilateral eye PERRL, bilateral eye EOMI Ears: bilateral ear auricle normal, bilateral ear canal normal, bilateral ear TM normal Nose: sinus tenderness (right), other (Rhino Rocket in the right naris without epistaxis. Subtle right maxillary edema) Mouth/Throat: No pharynx normal, No dental tenderness Neck: non-tender, full range of motion, supple, normal inspection Cardiovascular: normal peripheral pulses, regular rate, rhythm Neurologic/Psychiatric: alert, normal mood/affect, oriented x 3 Skin: normal color, warm/dry Progress/Results/Core Measures Results/Orders Lab Results Laboratory Tests Test 11/04/19 23:48 Range/Units White Blood Count 9.1 4.3-11.0 10^3/uL Red Blood Count 4.43 4.35-5.85 10^6/uL Hemoglobin 12.5 11.5-16.0 G/DL Hematocrit 38 35-52 % Mean Corpuscular Volume 85 80-99 FL Mean Corpuscular Hemoglobin 28 25-34 PG Mean Corpuscular Hemoglobin Concent 33 32-36 G/DL Red Cell Distribution Width 15.1 H 10.0-14.5 % Platelet Count 281 130-400 10^3/uL Mean Platelet Volume 9.8 7.4-10.4 FL Neutrophils (%) (Auto) 65 42-75 % Lymphocytes (%) (Auto) 27 12-44 % Monocytes (%) (Auto) 8 0-12 % Eosinophils (%) (Auto) 0 0-10 % Basophils (%) (Auto) 0 0-10 % Neutrophils # (Auto) 5.9 1.8-7.8 X 10^3 Lymphocytes # (Auto) 2.5 1.0-4.0 X 10^3 Monocytes # (Auto) 0.7 0.0-1.0 X 10^3 Eosinophils # (Auto) 0.0 0.0-0.3 10^3/uL Basophils # (Auto) 0.0 0.0-0.1 10^3/uL Prothrombin Time 13.9 12.2-14.7 SEC INR Comment 1.0 0.8-1.4 Activated Partial Thromboplast Time 28 24-35 SEC Sodium Level 136 135-145 MMOL/L Potassium Level 3.1 L 3.6-5.0 MMOL/L Chloride Level 103 98-107 MMOL/L Carbon Dioxide Level 22 21-32 MMOL/L Anion Gap 11 5-14 MMOL/L Blood Urea Nitrogen 5 L 7-18 MG/DL Creatinine 0.84 0.60-1.30 MG/DL Estimat Glomerular Filtration Rate > 60 BUN/Creatinine Ratio 6 Glucose Level 99 70-105 MG/DL Calcium Level 9.4 8.5-10.1 MG/DL Corrected Calcium 9.4 8.5-10.1 MG/DL Total Bilirubin 0.7 0.1-1.0 MG/DL Aspartate Amino Transf (AST/SGOT) 14 5-34 U/L Alanine Aminotransferase (ALT/SGPT) 14 0-55 U/L Alkaline Phosphatase 83 40-136 U/L Total Protein 7.5 6.4-8.2 GM/DL Albumin 4.0 3.2-4.5 GM/DL My Orders Orders - PACO BUTLER Ed Iv/Invasive Line Start (11/04/19 23:42) Ns Iv 500 Ml (Sodium Chloride 0.9%) (11/04/19 23:42) Cbc With Automated Diff (11/04/19 23:42) Comprehensive Metabolic Panel (11/04/19 23:42) Protime With Inr (11/04/19 23:42) Partial Thromboplastin Time (11/04/19 23:42) Blood Culture (11/04/19 23:42) Ceftriaxone For Iv Use (Rocephin For I (11/04/19 23:45) Medications Given in ED Current Medications Medications Dose Ordered Sig/Volodymyr Route Start Time Stop Time Status Last Admin Dose Admin Ceftriaxone Sodium 1000 mg/ Sterile Water 10 ml @ 200 mls/hr ONCE ONCE IV 11/04/19 23:45 11/04/19 23:47 DC 11/04/19 23:52 200 MLS/HR Sodium Chloride 500 ml @ 0 mls/hr Q0M ONCE IV 11/04/19 23:42 11/04/19 23:45 DC 11/04/19 23:48 0 MLS/HR Vital Signs/I&O 11/04/19 23:38 Temp 36.8 Pulse 58 Resp 18 B/P (MAP) 145/96 (112) Pulse Ox 98 Blood Pressure Mean: 112 Progress Progress Note : Time: 23:50 Progress Note Maxillary sinusitis. She doesn't want anything for nausea and pain. We'll give her some Rocephin and a little bit IV fluids and get some labs including a blood culture. If her labs look okay we'll let her go home if not we'll consider observation. She's not tachycardic but she is on amiodarone and metoprolol. She is afebrile and otherwise aseptic vital signs tonight. Departure Impression Primary Impression: Right maxillary sinusitis Additional Impression: Cellulitis of face Disposition: HOME, SELF-CARE Condition: Stable Departure-Patient Inst. Decision time for Depature: 00:23 Referrals: ARCHIE SHIRLEY MD NO,LOCAL PHYSICIAN (PCP) Primary Care Physician Patient Instructions: Cellulitis (Skin Infection), Adult (DC), Sinusitis in Adults Add. Discharge Instructions: It looks like you developed an infection in your right sinus and will usually take 2-3 days on antibiotics before it starts to turn around. Keep your follow- up appointment with Dr. Shirley. Keep taking your antibiotics on schedule as prescribed. Warm moist heat applied your right face can be helpful for pain and swelling. Tylenol 1000 mg every 8 hours as necessary for pain or fever above 100.3F. Return to the ER if you're having intractable nausea, pain, difficulty breathing or other worrisome symptoms. All discharge instructions reviewed with patient and/or family. Voiced understanding. PACO BUTLER Nov 04, 2019 23:50
[2019-11-04 23:57] LABS: BASOPHILS % (AUTO) 0 % (0-10); EOSINOPHILS % (AUTO) 0 % (0-10); HEMATOCRIT 38 % (35-52); HEMOGLOBIN 12.5 G/DL (11.5-16.0); LYMPHOCYTES # (AUTO) 2.5 X 10^3 (1.0-4.0); LYMPHOCYTES % (AUTO) 27 % (12-44); MEAN CORPUSCULAR HEMOGLOBIN 28 PG (25-34); MEAN CORPUSCULAR HGB CONC 33 G/DL (32-36); MEAN CORPUSCULAR VOLUME 85 FL (80-99); MEAN PLATELET VOLUME 9.8 FL (7.4-10.4); MONOCYTES # (AUTO) 0.7 X 10^3 (0.0-1.0); MONOCYTES % (AUTO) 8 % (0-12); NEUTROPHILS # (AUTO) 5.9 X 10^3 (1.8-7.8); NEUTROPHILS % (AUTO) 65 % (42-75); PLATELET COUNT 281 10^3/uL (130-400); RED CELL DISTRIBUTION WIDTH 15.1 % (10.0-14.5); WHITE BLOOD COUNT 9.1 10^3/uL (4.3-11.0)
[2019-11-05 00:06] LABS: CHLORIDE 103 MMOL/L (98-107); POTASSIUM 3.1 MMOL/L (3.6-5.0); SODIUM 136 MMOL/L (135-145)
[2019-11-05 00:07] LABS: CALCIUM 9.4 MG/DL (8.5-10.1)
[2019-11-05 00:08] LABS: PROTHROMBIN TIME PATIENT 13.9 SEC (12.2-14.7); TOTAL PROTEIN 7.5 GM/DL (6.4-8.2)
[2019-11-05 00:09] LABS: CARBON DIOXIDE 22 MMOL/L (21-32); GLUCOSE 99 MG/DL (70-105)
[2019-11-05 00:10] LABS: BILIRUBIN,TOTAL 0.7 MG/DL (0.1-1.0)
[2019-11-05 00:13] LABS: ALKALINE PHOSPHATASE 83 U/L (40-136); CREATININE SERUM 0.84 MG/DL (0.60-1.30); GFR ESTIMATED > 60
[2019-11-05 00:14] LABS: BUN/CREATININE RATIO 6
[2019-11-05 00:16] LABS: ALANINE AMINOTRANSFERASE 14 U/L (0-55)
[2019-11-05 00:27] VITALS: BP 145/96
== END 2019-11-05 00:27 | disposition home or self-care (01) ==
LOC: EDUNIT# 23:29 → ER 23:34
DX: J32.0 Chronic maxillary sinusitis (principal); L03.211 Cellulitis of face; R04.0 Epistaxis; I48.91 Unspecified atrial fibrillation; Z79.01 Long term (current) use of anticoagulants; Z80.0 Family history of malignant neoplasm of digestive organs; Z82.49 Family history of ischemic heart disease and other diseases of the circulatory system
CPT/HCPCS: 36415; 80053; 85025; 85610; 85730; 87040

== ENCOUNTER 2020-03-23 16:25 | Emergency (ER) | payer MEDICARE ==
[~2020-03-23] VITALS: Ht 157.4 cm; Wt 88.9 kg
[~2020-03-23 16:25] MED LIST changes: -AMIO200T4 PO; +AMIO200T6 PO; +ASPI-1238 PO; -ASPI-983 PO; -CETI10TA21 PO; +CETI10TA49 PO
[2020-03-23] MEDS ORDERED: ONDANSETRON 4 MG/2 ML (SDV) Z0FRAN ONE (16:40)
[2020-03-23] MEDS ORDERED: ONDANSETRON 4 MG/2 ML (SDV) Z0FRAN IVP ONE (16:45)
[2020-03-23] MEDS ORDERED: ACETAMINOPHEN 500 MG TAB (TYLENOL) PO ONE (17:00)
[2020-03-23 17:08] LABS: BASOPHILS % (AUTO) 0 % (0-10); EOSINOPHILS % (AUTO) 0 % (0-10); HEMATOCRIT 42 % (35-52); LYMPHOCYTES % (AUTO) 31 % (12-44); MEAN CORPUSCULAR HEMOGLOBIN 27 PG (25-34); MEAN CORPUSCULAR HGB CONC 31 G/DL (32-36); MEAN CORPUSCULAR VOLUME 86 FL (80-99); MEAN PLATELET VOLUME 10.7 FL (7.4-10.4); MONOCYTES % (AUTO) 1 % (0-12); NEUTROPHILS % (AUTO) 67 % (42-75); PLATELET COUNT 171 10^3/uL (130-400); WHITE BLOOD COUNT 2.7 10^3/uL (4.3-11.0)
[2020-03-23 17:09] LABS: LYMPHOCYTES # (AUTO) 0.8 X 10^3 (1.0-4.0); NEUTROPHILS # (AUTO) 1.8 X 10^3 (1.8-7.8)
--- NOTE | 2020-03-23 17:12 | Diagnostic Imaging Report ---
INDICATION: Cough and fever Portable chest shows normal heart size and vascularity. The lungs are clear. There is no effusion or pneumothorax. There is no bony abnormality. IMPRESSION: Normal chest with no change from 07/27/2016. Dictated by: Dictated on workstation # [id number]
--- NOTE | 2020-03-23 17:23 | ED GI ---
General Chief Complaint: Abdominal/GI Problems Stated Complaint: SHAKING,VOMITING History of Present Illness Date Seen by Provider: Mar 23, 2020 Time Seen by Provider: 17:00 Initial Comments Patient presents with complaint of fever nausea and vomiting after eating leftover chilly. Denies abdominal pain, diarrhea, chest pain or shortness of air. States she's had a cough for the last month and a half that is occasionally productive. Allergies and Home Medications Allergies Coded Allergies: No Known Drug Allergies (Unverified , 07/26/16) Home Medications Amiodarone HCl 200 Mg Tablet, 400 MG PO BID take 400 mg twice daily for 2 weeks then 400 mg daily Prescribed by: RUFINO DIAZ on 07/27/16819 Apixaban 5 Mg Tablet, 5 MG PO BID Prescribed by: RUFINO DIAZ on 07/27/16819 Cetirizine HCl 10 Mg Tablet, 10 MG PO BID, (Reported) Furosemide 20 Mg Tablet, 20 MG PO DAILY Prescribed by: RUFINO DIAZ on 07/27/16819 Lisinopril 10 Mg Tablet, 10 MG PO DAILY, (Reported) Metoprolol Tartrate 50 Mg Tablet, 50 MG PO DAILY, (Reported) Metoprolol Tartrate 50 Mg Tablet, 25 MG PO HS, (Reported) TAKES 1/2 (50MG) TABLET Potassium Chloride 10 Meq Tablet.er, 10 MEQ PO BID WITH MEALS Prescribed by: RUFINO DIAZ on 07/27/16819 Patient Home Medication List Home Medication List Reviewed: Yes Review of Systems Review of Systems Constitutional: see HPI, chills, fever, malaise EENTM: No Symptoms Reported Respiratory: Cough; Denies Shortness of Air, Denies SOA With Exertion, Denies SOA at Rest, Denies Stridor, Denies Wheezing Cardiovascular: Denies Chest Pain, Denies Edema, Denies Syncope Gastrointestinal: Denies Abdominal Pain, Denies Diarrhea; Nausea; Denies Poor Appetite; Vomiting Musculoskeletal: No back pain, No joint pain Skin: No change in color, No rash Psychiatric/Neurological: Denies Headache, Denies Numbness, Denies Paresthesia Past Nyrnloo-Lowwvz-Iyvjpk Hx Past Med/Social Hx: Reviewed Nursing Past Med/Soc Hx Patient Social History Alcohol Use: Denies Use Number of Drinks Today: Alcohol Beverage of Choice: Wine Recreational Drug Use: No Smoking Status: Never a Smoker 2nd Hand Smoke Exposure: No Recent Foreign Travel: No Contact w/Someone Who Travel: No Recent Hopitalizations: No Physical Abuse: No Sexual Abuse: No Mistreated: No Fear: No Immunizations Up To Date PED Vaccines UTD: Yes Date of Influenza Vaccine: May 12, 2016 Seasonal Allergies Seasonal Allergies: Yes Past Medical History Surgeries: Yes (wisdom teeth) Section, Hysterectomy Respiratory: No Currently Using CPAP: No Currently Using BIPAP: No Cardiac: Yes (SVT, ) Atrial Fibrillation Neurological: No Sexually Transmitted Disease: No HIV/AIDS: No Genitourinary: No Gastrointestinal: No Musculoskeletal: No Endocrine: Yes ("PRE-DIABETIC") HEENT: No Cancer: No Psychosocial: No Integumentary: No Blood Disorders: No Adverse Reaction/Blood Tranf: No Family Medical History Arthritis 19 MOTHER Asthma 19 MOTHER Cataracts 19 MOTHER Colon cancer 19 MOTHER Hypertension 19 FATHER 19 MOTHER Neoplasm 19 MOTHER Thyroid disease 19 MOTHER Visual disorder 19 FATHER 19 MOTHER Physical Exam Vital Signs Vital Signs - First Documented 03/23/20 16:31 Temp 38.6 Pulse 79 Resp 20 B/P (MAP) 118/87 (97) Pulse Ox 96 O2 Delivery Room Air Capillary Refill : Height/Weight/BMI Height: 5'2.00" Weight: 181lbs. 6.4oz. 82.784446zk; 38.00 BMI Method: General Appearance: WD/WN, no apparent distress HEENT: PERRL/EOMI, normal ENT inspection Respiratory: chest non-tender, lungs clear, normal breath sounds Cardiovascular: regular rate, rhythm, no edema, no gallop, no JVD Gastrointestinal: non tender, soft Extremities: normal range of motion, non-tender Back: normal inspection, no CVA tenderness Neurologic/Psychiatric: no motor/sensory deficits, alert, normal mood/affect Skin: normal color, warm/dry Focused Exam Lactate Level 03/23/20 16:52: Lactic Acid Level 3.19*H Lactic Acid Level Laboratory Tests Test 03/23/20 16:52 Lactic Acid Level 3.19 MMOL/L (0.50-2.00) *H Progress/Results/Core Measures Results/Orders Lab Results Laboratory Tests Test 03/23/20 16:52 03/23/20 16:55 Range/Units White Blood Count 2.7 L 4.3-11.0 10^3/uL Red Blood Count 4.86 4.35-5.85 10^6/uL Hemoglobin 13.0 11.5-16.0 G/DL Hematocrit 42 35-52 % Mean Corpuscular Volume 86 80-99 FL Mean Corpuscular Hemoglobin 27 25-34 PG Mean Corpuscular Hemoglobin Concent 31 L 32-36 G/DL Red Cell Distribution Width 15.0 H 10.0-14.5 % Platelet Count 171 130-400 10^3/uL Mean Platelet Volume 10.7 H 7.4-10.4 FL Immature Granulocyte % (Auto) 0 % Neutrophils (%) (Auto) 67 42-75 % Lymphocytes (%) (Auto) 31 12-44 % Monocytes (%) (Auto) 1 0-12 % Eosinophils (%) (Auto) 0 0-10 % Basophils (%) (Auto) 0 0-10 % Neutrophils # (Auto) 1.8 1.8-7.8 X 10^3 Lymphocytes # (Auto) 0.8 L 1.0-4.0 X 10^3 Monocytes # (Auto) 0.0 0.0-1.0 X 10^3 Eosinophils # (Auto) 0.0 0.0-0.3 10^3/uL Basophils # (Auto) 0.0 0.0-0.1 10^3/uL Immature Granulocyte # (Auto) 0.0 0.0-0.1 10^3/uL Sodium Level 143 135-145 MMOL/L Potassium Level 5.9 H 3.6-5.0 MMOL/L Chloride Level 112 H 98-107 MMOL/L Carbon Dioxide Level 18 L 21-32 MMOL/L Anion Gap 13 5-14 MMOL/L Blood Urea Nitrogen 6 L 7-18 MG/DL Creatinine 0.71 0.60-1.30 MG/DL Estimat Glomerular Filtration Rate > 60 BUN/Creatinine Ratio 8 Glucose Level 83 70-105 MG/DL Lactic Acid Level 3.19 *H 0.50-2.00 MMOL/L Calcium Level 8.1 L 8.5-10.1 MG/DL Corrected Calcium 8.6 8.5-10.1 MG/DL Total Bilirubin 0.3 0.1-1.0 MG/DL Aspartate Amino Transf (AST/SGOT) 53 H 5-34 U/L Alanine Aminotransferase (ALT/SGPT) 32 0-55 U/L Alkaline Phosphatase 82 40-136 U/L Total Protein 7.0 6.4-8.2 GM/DL Albumin 3.4 3.2-4.5 GM/DL Micro Results Microbiology 03/23/20 Influenza Types A,B Antigen (CAIN) - Final, Complete My Orders Orders - SHAMIR POWERS DO Ondansetron Injection (Zofran Injectio (03/23/20 16:40) Ondansetron Injection (Zofran Injectio (03/23/20 16:45) Ed Iv/Invasive Line Start (03/23/20 16:43) Cbc With Automated Diff (03/23/20 16:43) Comprehensive Metabolic Panel (03/23/20 16:43) Chest 1 View Ap/Pa Only (03/23/20 16:53) Procalcitonin (Pct) (03/23/20 16:53) Lactic Acid Analyzer (03/23/20 16:53) Ed Iv/Invasive Line Start (03/23/20 16:53) Acetaminophen Tablet (Tylenol Tablet) (03/23/20 17:00) Coronavirus Sars-Cov-2 So 2018 (03/23/20 16:54) Influenza A And B Antigens (03/23/20 16:56) Manual Differential (03/23/20 16:52) Ns Iv 1000 Ml (Sodium Chloride 0.9%) (03/23/20 17:45) Ns Iv 1000 Ml (Sodium Chloride 0.9%) (03/23/20 17:40) Medications Given in ED Current Medications Medications Dose Ordered Sig/Volodymyr Route Start Time Stop Time Status Last Admin Dose Admin Acetaminophen 1,000 mg ONCE ONCE PO 03/23/20 17:00 03/23/20 17:01 DC 03/23/20 16:59 1,000 MG Ondansetron HCl 4 mg ONCE ONCE IVP 03/23/20 16:45 03/23/20 16:50 DC 03/23/20 16:55 4 MG Vital Signs/I&O 03/23/20 16:31 Temp 38.6 Pulse 79 Resp 20 B/P (MAP) 118/87 (97) Pulse Ox 96 O2 Delivery Room Air Diagnostic Imaging Diagonstic Imaging: Xray Plain Films/CT/US/NM/MRI: chest Comments Date of Exam:03/23/20 CHEST 1 VIEW AP/PA ONLY INDICATION: Cough and fever Portable chest shows normal heart size and vascularity. The lungs are clear. There is no effusion or pneumothorax. There is no bony abnormality. IMPRESSION: Normal chest with no change from 07/27/2016. Dictated on workstation # [id number] Dict: 03/23/20 1710 Trans: 03/23/20 171 [facility] [id number] Interpreted by: EMILY FLORES MD Electronically signed by: Departure Impression Primary Impression: Nausea and vomiting Qualified Codes: R11.2 - Nausea with vomiting, unspecified Disposition: HOME, SELF-CARE Condition: Improved Departure-Patient Inst. Decision time for Depature: 18:03 Referrals: NO,LOCAL PHYSICIAN (PCP/Family) Primary Care Physician Patient Instructions: Nausea and Vomiting, Adult Add. Discharge Instructions: See your PCP in 2 to 3 days if not improving, ER sooner if worse and unable to see your PCP All discharge instructions reviewed with patient and/or family. Voiced understanding. Scripts Ondansetron (Ondansetron Odt) 4 Mg Tab.rapdis 4 MG PO TID for Nausea, #12 TAB Prov: SHAMIR POWERS DO 03/23/20 SHAMIR POWERS DO Mar 23, 2020 17:23
[2020-03-23] MEDS ORDERED: NS IV 1000 ML 1,000 ML ONE (17:40)
[2020-03-23 17:42] LABS: SODIUM 143 MMOL/L (135-145)
[2020-03-23 17:43] LABS: ALANINE AMINOTRANSFERASE 32 U/L (0-55); ALKALINE PHOSPHATASE 82 U/L (40-136); BILIRUBIN,TOTAL 0.3 MG/DL (0.1-1.0); BUN/CREATININE RATIO 8; CALCIUM 8.1 MG/DL (8.5-10.1); CARBON DIOXIDE 18 MMOL/L (21-32); CHLORIDE 112 MMOL/L (98-107); CREATININE SERUM 0.71 MG/DL (0.60-1.30); GFR ESTIMATED > 60; GLUCOSE 83 MG/DL (70-105); POTASSIUM 5.9 MMOL/L (3.6-5.0)
[2020-03-23 17:44] LABS: ALBUMIN 3.4 GM/DL (3.2-4.5)
[2020-03-23] MEDS ORDERED: NS IV 1000 ML 1,000 ML IV SCH (17:45)
[2020-03-23 18:02] LABS: BAND NEUTROPHILS 3 %; NEUTROPHILS % (MANUAL) 68 %
[2020-03-23 18:03] LABS: BASOPHILS % (MANUAL) 0 %; EOSINOPHILS % (MANUAL) 0 %; LYMPHOCYTES % (MANUAL) 28 %; MONOCYTES % (MANUAL) 1 %
[2020-03-23] MEDS ORDERED: ONDA4TAB11 PO (18:03)
[2020-03-23 18:24] VITALS: BP 142/64
== END 2020-03-23 18:24 | disposition home or self-care (01) ==
LOC: EDUNIT# 16:25 → ER FS 16:28
DX: R11.2 Nausea with vomiting, unspecified (principal); I48.91 Unspecified atrial fibrillation; Z20.828 Contact with and (suspected) exposure to other viral communicable diseases; Z80.0 Family history of malignant neoplasm of digestive organs; Z82.49 Family history of ischemic heart disease and other diseases of the circulatory system; Z82.61 Family history of arthritis; Z79.01 Long term (current) use of anticoagulants
CPT/HCPCS: 36415; 71045; 80053; 83605; 85007; 85027; 87804 ×2; 99284; U0002; 87635

== ENCOUNTER → 2021-05-03 | Outpatient (CLI) | payer MEDICARE ==
[~2021-05-03] MED LIST changes: -AMIO200T6 PO; +AMIO200T65 PO; -LISI10TA2 PO; +LISI10TA25 PO; +ONDA4TAB11 PO; +POTA-160 PO; -POTA10TA6 PO
== END ==
LOC: CARD 09:00
PROVIDERS: ATTEND Internal Medicine Cardiovascular Disease
DX: I34.0 Nonrheumatic mitral (valve) insufficiency (principal); I11.9 Hypertensive heart disease without heart failure
CPT/HCPCS: 93306

== ENCOUNTER 2021-08-23 06:51 | Outpatient (CLI) | payer MEDICARE ==
[~2021-08-23] VITALS: Ht 157.5 cm; Wt 90.7 kg
[2021-08-23] MEDS ORDERED: DRON400T6 PO (08:59)
[2021-08-23] MEDS ORDERED: METO50TA15 PO (08:59)
[2021-08-23] MEDS ORDERED: HYDR25TA4 PO (08:59)
[2021-08-23] MEDS ORDERED: SACU1TAB7 PO (08:59)
== END 2021-08-23 12:42 | disposition home or self-care (01) ==
LOC: PREOP 06:51
PROVIDERS: ATTEND Surgery
DX: Z01.818 Encounter for other preprocedural examination (principal)

== ENCOUNTER 2022-04-21 12:10 | Emergency (ER) | payer MEDICARE, MEDICAID ==
[~2022-04-21] VITALS: Ht 157 cm; Wt 87.0 kg
[~2022-04-21 12:10] MED LIST changes: +DRON400T6 PO; +HYDR25TA4 PO; +SACU1TAB7 PO
[2022-04-21 12:44] VITALS: BP_SYST 102; BP_SYST 109; BP_DIAS 74; BP_DIAS 76; BP_DIAS 79
[2022-04-21 12:52] LABS: BASOPHILS % (AUTO) 1 % (0-10); EOSINOPHILS # (AUTO) 0.1 10^3/uL (0.0-0.3); EOSINOPHILS % (AUTO) 2 % (0-10); HEMATOCRIT 41 % (35-52); HEMOGLOBIN 13.2 g/dL (11.5-16.0); LYMPHOCYTES # (AUTO) 2.5 10^3/uL (1.0-4.0); LYMPHOCYTES % (AUTO) 51 % (12-44); MEAN CORPUSCULAR HEMOGLOBIN 27 pg (25-34); MEAN CORPUSCULAR HGB CONC 32 g/dL (32-36); MEAN CORPUSCULAR VOLUME 85 fL (80-99); MEAN PLATELET VOLUME 9.5 fL (9.0-12.2); MONOCYTES # (AUTO) 0.6 10^3/uL (0.0-1.0); MONOCYTES % (AUTO) 12 % (0-12); NEUTROPHILS # (AUTO) 1.7 10^3/uL (1.8-7.8); NEUTROPHILS % (AUTO) 35 % (42-75); PLATELET COUNT 250 10^3/uL (130-400); WHITE BLOOD COUNT 4.9 10^3/uL (4.3-11.0)
--- NOTE | 2022-04-21 12:53 | ED General ---
General Chief Complaint: Dizziness/Syncope Stated Complaint: DIZZY Source of Information: Patient Exam Limitations: No Limitations History of Present Illness Date Seen by Provider: Apr 21, 2022 Time Seen by Provider: 12:15 Initial Comments Patient is a 59-year-old female who presents to the emergency department for evaluation of dizziness and near syncope that began earlier today while she was working at [employer]. She states that she has been under a lot of stress recently due to her ex- being in the ICU and she states that she is having to make some difficult decisions regarding his care. She denies any chest pain or shortness of air. Denies any headache or vision change. She states she had some "prickling sensations" around her mouth but denies any numbness or weakness. No recent medication changes. Denies drug use. Allergies and Home Medications Allergies Coded Allergies: No Known Drug Allergies (Unverified , 07/26/16) Patient Home Medication List Home Medication List Reviewed: Yes Apixaban (Eliquis) 5 Mg Tablet, 5 MG PO BID Prescribed by: RUFINO DIAZ on 07/27/16 0820 Cetirizine HCl (Zyrtec) 10 Mg Tablet, 10 MG PO BID, (Reported) Entered as Reported by: MARLENE MORALES on 07/26/16 0803 Dronedarone HCl (Multaq) 400 Mg Tablet, 400 MG PO BID, (Reported) Entered as Reported by: FLAVIA LONG on 08/23/21 0859 Furosemide (Lasix) 20 Mg Tablet, 20 MG PO DAILY Prescribed by: RUFINO DIAZ on 07/27/16 0820 Hydrochlorothiazide (Hydrochlorothiazide) 25 Mg Tablet, 25 MG PO DAILY, (Reported) Entered as Reported by: FLAVIA LONG on 08/23/21 0859 Metoprolol Tartrate (Metoprolol Tartrate) 50 Mg Tablet, 50 MG PO BID, (Reported) Entered as Reported by: FLAVIA LONG on 08/23/21 0859 Potassium Chloride (Klor-Con 10) 10 Meq Tablet.er, 10 MEQ PO BID WITH MEALS Prescribed by: RUFINO DIAZ on 07/27/16 0820 Sacubitril/Valsartan (Entresto 49 mg-51 mg Tablet) 1 Each Tablet, 1 TAB PO BID, (Reported) Entered as Reported by: FLAVIA LONG on 08/23/21 0859 Review of Systems Review of Systems Constitutional: see HPI, dizziness EENTM: no symptoms reported Respiratory: no symptoms reported Cardiovascular: no symptoms reported Gastrointestinal: no symptoms reported Genitourinary: no symptoms reported Musculoskeletal: no symptoms reported Skin: no symptoms reported Psychiatric/Neurological: No Symptoms Reported Hematologic/Lymphatic: No Symptoms Reported Immunological/Allergic: no symptoms reported Past Ocidfds-Xtglrj-Nqdbcw Hx Immunizations Up To Date PED Vaccines UTD: Yes First/Initial COVID19 Vaccinat: JULY 2020 Second COVID19 Vaccination Johnathan: AUGUST 2020 Third COVID19 Vaccination Date: NO Seasonal Allergies Seasonal Allergies: Yes Past Medical History Surgeries: Yes (wisdom teeth) Section, Hysterectomy Respiratory: No Currently Using CPAP: No Currently Using BIPAP: No Cardiac: Yes (SVT, ) Atrial Fibrillation Neurological: No Sexually Transmitted Disease: No HIV/AIDS: No Genitourinary: No Gastrointestinal: No Musculoskeletal: No Endocrine: Yes ("PRE-DIABETIC") HEENT: No Cancer: No Psychosocial: No Integumentary: No Blood Disorders: No Adverse Reaction/Blood Tranf: No Family Medical History Arthritis 19 MOTHER Asthma 19 MOTHER Cataracts 19 MOTHER Colon cancer 19 MOTHER Hypertension 19 FATHER 19 MOTHER Neoplasm 19 MOTHER Thyroid disease 19 MOTHER Visual disorder 19 FATHER 19 MOTHER Physical Exam Vital Signs Vital Signs - First Documented 04/21/22 12:15 Temp 35.2 Pulse 79 Resp 16 B/P (MAP) 90/64 (73) Pulse Ox 99 O2 Delivery Room Air Capillary Refill : Height, Weight, BMI Height: 5'2.00" Weight: 181lbs. 6.4oz. 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 as Tested Skin: Normal Color, Warm/Dry Progress/Results/Core Measures Suspected Sepsis SIRS Temperature: Pulse: 84 Respiratory Rate: Laboratory Tests 04/21/22 12:45: White Blood Count 4.9 Blood Pressure 102 /76 Mean: 85 Laboratory Tests 04/21/22 12:45: Creatinine 1.11, Platelet Count 250, Total Bilirubin 0.7 Results/Orders Lab Results Laboratory Tests Test 04/21/22 12:45 Range/Units White Blood Count 4.9 4.3-11.0 10^3/uL Red Blood Count 4.90 3.80-5.11 10^6/uL Hemoglobin 13.2 11.5-16.0 g/dL Hematocrit 41 35-52 % Mean Corpuscular Volume 85 80-99 fL Mean Corpuscular Hemoglobin 27 25-34 pg Mean Corpuscular Hemoglobin Concent 32 32-36 g/dL Red Cell Distribution Width 15.0 H 10.0-14.5 % Platelet Count 250 130-400 10^3/uL Mean Platelet Volume 9.5 9.0-12.2 fL Immature Granulocyte % (Auto) 0 % Neutrophils (%) (Auto) 35 L 42-75 % Lymphocytes (%) (Auto) 51 H 12-44 % Monocytes (%) (Auto) 12 0-12 % Eosinophils (%) (Auto) 2 0-10 % Basophils (%) (Auto) 1 0-10 % Neutrophils # (Auto) 1.7 L 1.8-7.8 10^3/uL Lymphocytes # (Auto) 2.5 1.0-4.0 10^3/uL Monocytes # (Auto) 0.6 0.0-1.0 10^3/uL Eosinophils # (Auto) 0.1 0.0-0.3 10^3/uL Basophils # (Auto) 0.0 0.0-0.1 10^3/uL Immature Granulocyte # (Auto) 0.0 0.0-0.1 10^3/uL Sodium Level 139 135-145 MMOL/L Potassium Level 2.7 L 3.6-5.0 MMOL/L Chloride Level 103 98-107 MMOL/L Carbon Dioxide Level 20 L 21-32 MMOL/L Anion Gap 16 H 5-14 MMOL/L Blood Urea Nitrogen 7 7-18 MG/DL Creatinine 1.11 0.60-1.30 MG/DL Estimat Glomerular Filtration Rate 56 BUN/Creatinine Ratio 6 Glucose Level 132 H 70-105 MG/DL Calcium Level 9.0 8.5-10.1 MG/DL Corrected Calcium 9.2 8.5-10.1 MG/DL Total Bilirubin 0.7 0.1-1.0 MG/DL Aspartate Amino Transf (AST/SGOT) 15 5-34 U/L Alanine Aminotransferase (ALT/SGPT) 14 0-55 U/L Alkaline Phosphatase 75 40-136 U/L Troponin I < 0.028 <0.028 NG/ML Total Protein 7.0 6.4-8.2 GM/DL Albumin 3.8 3.2-4.5 GM/DL My Orders Orders - ARNOL DOE APRN Chest 1 View, Ap/Pa Only (04/21/22 12:41) Cbc With Automated Diff (04/21/22 12:41) Comprehensive Metabolic Panel (04/21/22 12:41) Orthostatic Vital Signs (Adult (04/21/22 12:41) Troponin I Deven (04/21/22 12:41) Iv/Invasive Line Insertion .IV INSERT (04/21/22 12:41) Ns Iv 500 Ml (Sodium Chloride 0.9%) (04/21/22 13:15) Potassium Chloride (Tablet) (K Dur Table (04/21/22 13:30) Medications Given in ED Current Medications Medications Dose Ordered Sig/Volodymyr Route Start Time Stop Time Status Last Admin Dose Admin Potassium Chloride 40 meq ONCE ONCE PO 04/21/22 13:30 04/21/22 13:31 DC 04/21/22 14:53 40 MEQ Vital Signs/I&O 04/21/22 04/21/22 04/21/22 12:15 12:44 14:49 Temp 35.2 Pulse 79 74 63 80 84 Resp 16 16 B/P (MAP) 90/64 (73) 109/74 (86) 108/79 109/79 (89) 102/76 (85) Pulse Ox 99 97 O2 Delivery Room Air Room Air Capillary Refill : Blood Pressure Mean: 85 Progress Note : Progress Note Patient is nontoxic and well-hydrated on exam. No adventitious lung sounds or increased work of breathing noted. No focal neurologic deficits appreciated. Patient was ambulatory to the room without issue. She denies any vertiginous symptoms. No cerebellar dysfunction noted with intact [id number]-bs-ewic and nose to finger. She has drawn peripheral pulses. EKG without acute ischemic change or arrhythmia. Laboratory evaluation notable for hypokalemia. She states she is supposed to take daily potassium but has been out for the last week until today. She did take her dose of 10 mEq today. She was further repleted with 40 mEq here in the ER orally. Patient is not orthostatic. She was given a 500 mL normal saline bolus. Patient states her symptoms have resolved when she was reassessed after her work-up was complete. She feels comfortable going home. I discussed the importance of continuing to use her potassium supplementation to ensure that her potassium level returns to normal. Follow-up with PCP. Return precautions for urgent symptomology discussed. Patient verbalized understanding. ECG EKG : EKG Time: 12:27 Rate: 77 Rhythm: Normal Sinus ECG Impression: Nonspecific Changes Departure Impression Primary Impression: Near syncope Disposition: 01 HOME, SELF-CARE Condition: Stable Departure-Patient Inst. Decision time for Depature: 14:15 Referrals: NO,LOCAL PHYSICIAN (PCP/Family) Primary Care Physician Patient Instructions: Near Fainting (DC) ARNOL DOE APRN Apr 21, 2022 12:53
--- NOTE | 2022-04-21 12:55 | Diagnostic Imaging Report ---
INDICATION: Near syncope. COMPARISON: 03/23/2020. FINDINGS: The lungs appear clear without focal airspace opacities or consolidation. There are no findings of an effusion. There is no evidence of a pneumothorax. Heart size and mediastinal contours appear appropriate. Pulmonary vascularity appears within normal limits. There is no acute or suspicious osseous abnormality demonstrated. IMPRESSION: No radiographic evidence of an acute cardiopulmonary process. . Dictated by: Dictated on workstation # [id number]
[2022-04-21 13:15] LABS: ALANINE AMINOTRANSFERASE 14 U/L (0-55); ALBUMIN 3.8 GM/DL (3.2-4.5); ALKALINE PHOSPHATASE 75 U/L (40-136); BILIRUBIN,TOTAL 0.7 MG/DL (0.1-1.0); BUN/CREATININE RATIO 6; CARBON DIOXIDE 20 MMOL/L (21-32); CHLORIDE 103 MMOL/L (98-107); CREATININE SERUM 1.11 MG/DL (0.60-1.30); GFR ESTIMATED 56; GLUCOSE 132 MG/DL (70-105); POTASSIUM 2.7 MMOL/L (3.6-5.0); SODIUM 139 MMOL/L (135-145)
[2022-04-21] MEDS ORDERED: NS IV 500 ML 500 ML IV SCH (13:15)
[2022-04-21] MEDS ORDERED: KCL 20 MEQ TAB (K-DUR) PO ONE (13:30)
[2022-04-21 14:49] VITALS: BP 108/79
== END 2022-04-21 14:49 | disposition home or self-care (01) ==
LOC: EDUNIT# 12:10 → ER 12:13
DX: R55 Syncope and collapse (principal); E87.6 Hypokalemia; Z28.310 Unvaccinated for COVID-19
CPT/HCPCS: 36415; 71045; 80053; 84484; 85025; 93005

== ENCOUNTER → 2022-08-29 | Outpatient (CLI) | payer MEDICARE, MEDICAID | LOC: CARD 10:14 | PROVIDERS: ATTEND Internal Medicine Cardiovascular Disease | DX: I08.0 Rheumatic disorders of both mitral and aortic valves (principal); I11.9 Hypertensive heart disease without heart failure | CPT/HCPCS: 93306 ==